=== PATIENT | male | born 1935 | race Caucasian/White ===

== ENCOUNTER 2018-03-26 13:21 | Emergency (ER) | payer MEDICARE ==
[~2018-03-26] VITALS: Ht 180.3 cm; Wt 79.0 kg
[~2018-03-26 13:21] MED LIST: ADULT ASPIRIN L81 MG; ALBUTEROL2.5 MG/3 M INH; ALLOPURINOL100 MG PO; BACTRIM DS1 TAB PO; COLCHICINE PO; COLCHICINE0.6 MG PO; CYCLOBENZAPR5 MG PO; EC-NAPROSYN375 MG PO; ENALAPR/HCTZ1 TA1 PO; ENALAPRIL10 MG PO; FLOMAX0.4 M1 PO; FLUARIX QUADRIV1 IN1 IM; FLUARIX QUADRIV1 INJ IM; FLUZONE SPLT1 M1 IM; INDOMETHACIN25 MG PO; INDOMETHACIN50 MG PO; LORTAB5 PO; MEDDOSEPAK PO; NAPROXEN375 MG PO; PROAIR HFA IN; PROBENECID500 MG PO; RANITIDINE150 M1 PO; SPIRIVA HANDIHALER IN; TRAMADOL HCL50 MG PO; VASERETIC1 TAB OR; VENTOLIN HFA IN; ZEBETA10 MG OR
[2018-03-26] MEDS ORDERED: MOTRIN400 MG PO (15:16)
[2018-03-26] MEDS ORDERED: VOLTAREN1%GEL TOP (15:16)
[2018-03-26] MEDS ORDERED: METOPROL TAR25 MG PO (15:43)
[2018-03-26] MEDS ORDERED: CARDURA1 MG PO (15:44)
[2018-03-26] MEDS ORDERED: NEURONTIN100 MG PO (15:45)
[2018-03-26] MEDS ORDERED: PROSCAR5 MG PO (15:45)
[2018-03-26] MEDS ORDERED: HYDROCHLOROT25 MG PO (15:46)
[2018-03-26] MEDS ORDERED: SPIRIVA IN (15:46)
[2018-03-26] MEDS ORDERED: ALLOPURINOL100 MG PO (15:47)
[2018-03-26] MEDS ORDERED: PREDNISONE20 MG PO (15:48)
[2018-03-26] MEDS ORDERED: TRAZODONE50 MG PO ×2 (15:48→15:50)
[2018-03-26] MEDS ORDERED: CELEXA20 MG PO (15:49)
[2018-03-26] MEDS ORDERED: KLOR-CON M2020 MEQ PO (15:49)
[2018-03-26] MEDS ORDERED: K-PHOS500 MG PO (15:50)
[2018-03-26 17:08] VITALS: BP 119/60
== END 2018-03-26 17:08 | disposition home or self-care (01) ==
LOC: ED 13:21
DX: M80.88XA Other osteoporosis with current pathological fracture, vertebra(e), initial encounter for fracture (principal); F17.210 Nicotine dependence, cigarettes, uncomplicated

== ENCOUNTER 2018-04-27 07:30 | Emergency (ER) | payer MEDICARE ==
[~2018-04-27] VITALS: Ht 180.3 cm; Wt 84.1 kg
[~2018-04-27 07:30] MED LIST changes: +CARDURA1 MG PO; +CELEXA20 MG PO; +HYDROCHLOROT25 MG PO; +K-PHOS500 MG PO; +KLOR-CON M2020 MEQ PO; +METOPROL TAR25 MG PO; +MOTRIN400 MG PO; +NEURONTIN100 MG PO; +PREDNISONE20 MG PO; +PROSCAR5 MG PO; +SPIRIVA IN; +TRAZODONE50 MG PO; +VOLTAREN1%GEL TOP
[2018-04-27] MEDS ORDERED: FLEXERIL PO (09:39)
[2018-04-27] MEDS ORDERED: PERCOCET 10/31 COMBO PO (09:39)
[2018-04-27 09:41] VITALS: BP 127/63
== END 2018-04-27 10:13 | disposition home or self-care (01) ==
LOC: ED 07:30
DX: M48.54XA Collapsed vertebra, not elsewhere classified, thoracic region, initial encounter for fracture (principal); M54.6 Pain in thoracic spine; Y92.129 Unspecified place in nursing home as the place of occurrence of the external cause

== ENCOUNTER 2018-05-11 18:37 | Inpatient (IN) | payer MEDICARE ==
[~2018-05-11] VITALS: Ht 180.3 cm; Wt 70.0 kg
[~2018-05-11 18:37] MED LIST changes: +FLEXERIL PO; +PERCOCET 10/31 COMBO PO
[2018-05-11 19:27] LABS: HEMATOCRIT 42.4 % (39.0-50.0); HEMOGLOBIN 13.6 g/dl (14.0-18.0); IMMATURE GRANULOCYTES 0.9 % (0.0-5.0); MEAN CELL VOLUME 80.8 fL CALC (80.0-100.0); MEAN CORPUSCULAR HGB 25.9 pG CALC (26.0-32.0); MEAN CORPUSCULAR HGB CONC 32.1 g/L CALC (32.0-36.0); NEUT# 19.25 thou/uL (1.82-7.42); RED BLOOD COUNT 5.25 mill/uL (4.70-6.10); RED CELL DISTRI WIDTH 17.3 % (11.5-15.5)
[2018-05-11] MEDS ORDERED: TRAMADOL HYDROC50 MG PO (19:36)
[2018-05-11] MEDS ORDERED: MELATONIN3 M1 PO (19:38)
[2018-05-11 19:40] LABS: ALBUMIN 3.3 g/dL (3.2-5.0); ALKALINE PHOSPHATASE 153 u/l (38-126); ANION GAP 17 (6-22 (CALC)); BILIRUBIN, TOTAL 1.5 mg/dL (0.0-1.4); BUN 40 mg/dL (8-23); BUN/CREATININE RATIO 32 (12-20 (CALC)); CARBON DIOXIDE 28 mmol/l (22-30); CHLORIDE 100 mmol/l (95-108); CREATININE 1.3 mg/dL (0.7-1.3); GFR 53 ML/MIN (>=60 (CALC)); GFR FOR AFR.AMER. > 60 ML/MIN (>=60 (CALC)); POTASSIUM 3.8 mmol/l (3.5-5.1); SGPT/ALT 63 u/l (11-66); SODIUM 141 mmol/l (137-146); TOTAL PROTEIN 6.4 g/dL (6.3-8.2)
[2018-05-11 19:41] LABS: SGOT/AST 110 u/l (19-48)
[2018-05-11 19:52] LABS: MYOGLOBIN 227 ng/mL (0 - 121)
[2018-05-11] MEDS ORDERED: COMBIVENT RESPIMAT IN (20:08)
[2018-05-11] MEDS ORDERED: TRAMADOL HCL50 MG PO (20:08)
[2018-05-11 22:00] LABS: URINE BLOOD DIPSTICK LARGE (NEGATIVE); URINE GLUCOSE - DIPSTICK NEGATIVE (NEGATIVE); URINE KETONE NEGATIVE (NEGATIVE); URINE PROTEIN - DIPSTICK 100 mg/dL (NEG-TRACE); URINE SPECIFIC GRAVITY 1.025
[2018-05-11 22:01] LABS: URINE BILIRUBIN - DIPSTICK NEGATIVE (NEGATIVE); URINE CLARITY SL CLOUDY; URINE COLOR AMBER; URINE LEUK ESTERASE MODERATE (NEGATIVE); URINE NITRITE - DIPSTICK POSITIVE (Negative)
[2018-05-11 22:06] LABS: URINE WBC 50-100 WBC/hpf (0-5)
[2018-05-12 04:54] VITALS: BP 126/69
[2018-05-12 05:01] LABS: HEMATOCRIT 39.1 % (39.0-50.0); HEMOGLOBIN 12.4 g/dl (14.0-18.0); IMMATURE GRANULOCYTES 0.7 % (0.0-5.0); MEAN CELL VOLUME 80.3 fL CALC (80.0-100.0); MEAN CORPUSCULAR HGB 25.5 pG CALC (26.0-32.0); MEAN CORPUSCULAR HGB CONC 31.7 g/L CALC (32.0-36.0); NEUT# 11.77 thou/uL (1.82-7.42); RED BLOOD COUNT 4.87 mill/uL (4.70-6.10); RED CELL DISTRI WIDTH 16.9 % (11.5-15.5)
[2018-05-12 05:25] LABS: ALKALINE PHOSPHATASE 124 u/l (38-126); ANION GAP 15 (6-22 (CALC)); BILIRUBIN, TOTAL 0.7 mg/dL (0.0-1.4); BUN 42 mg/dL (8-23); BUN/CREATININE RATIO 34 (12-20 (CALC)); CALCULATED LDLCHOLESTEROL 35 mg/dL (62-129 (CALC)); CARBON DIOXIDE 25 mmol/l (22-30); CHLORIDE 102 mmol/l (95-108); CREATININE 1.2 mg/dL (0.7-1.3); GFR 58 ML/MIN (>=60 (CALC)); GFR FOR AFR.AMER. > 60 ML/MIN (>=60 (CALC)); HDL CHOLESTEROL 16 mg/dL (>=40); POTASSIUM 3.5 mmol/l (3.5-5.1); SGOT/AST 90 u/l (19-48); SGPT/ALT 54 u/l (11-66); SODIUM 138 mmol/l (137-146); TOTAL TRIGLYCERIDES 70 mg/dl (30-149); VLDL CHOLESTROL 14 mg/dl (0-38 (CALC))
[2018-05-12 05:33] LABS: ALBUMIN 2.4 g/dL (3.2-5.0); CHOLESTEROL HDL RATIO 4.1 (<4.4 (CALC)); TOTAL CHOLESTEROL 65 mg/dl (0-199); TOTAL PROTEIN 4.8 g/dL (6.3-8.2)
[2018-05-12 09:03] VITALS: BP 101/53
[2018-05-12 11:00] VITALS: BP 121/46
[2018-05-12 15:50] VITALS: BP 126/63
[2018-05-12 20:03] VITALS: BP 115/68
[2018-05-13 04:33] VITALS: BP 148/76
[2018-05-13 05:06] LABS: HEMATOCRIT 39.9 % (39.0-50.0); HEMOGLOBIN 12.6 g/dl (14.0-18.0); IMMATURE GRANULOCYTES 0.8 % (0.0-5.0); MEAN CELL VOLUME 81.1 fL CALC (80.0-100.0); MEAN CORPUSCULAR HGB 25.6 pG CALC (26.0-32.0); MEAN CORPUSCULAR HGB CONC 31.6 g/L CALC (32.0-36.0); NEUT# 14.51 thou/uL (1.82-7.42); RED BLOOD COUNT 4.92 mill/uL (4.70-6.10); RED CELL DISTRI WIDTH 16.7 % (11.5-15.5)
[2018-05-13 05:34] LABS: ANION GAP 14 (6-22 (CALC)); BUN 39 mg/dL (8-23); BUN/CREATININE RATIO 42 (12-20 (CALC)); CARBON DIOXIDE 25 mmol/l (22-30); CHLORIDE 105 mmol/l (95-108); CREATININE 0.9 mg/dL (0.7-1.3); GFR > 60 ML/MIN (>=60 (CALC)); GFR FOR AFR.AMER. > 60 ML/MIN (>=60 (CALC)); POTASSIUM 3.7 mmol/l (3.5-5.1); SODIUM 140 mmol/l (137-146)
[2018-05-13 07:49] VITALS: BP 116/66
[2018-05-13 12:00] VITALS: BP 109/53
[2018-05-13 15:45] VITALS: BP 124/62
[2018-05-13 20:31] VITALS: BP 126/66
[2018-05-14 04:52] VITALS: BP 148/88
[2018-05-14 05:36] LABS: HEMATOCRIT 38.5 % (39.0-50.0); IMMATURE GRANULOCYTES 1.7 % (0.0-5.0); MEAN CELL VOLUME 82.4 fL CALC (80.0-100.0); MEAN CORPUSCULAR HGB 25.7 pG CALC (26.0-32.0); MEAN CORPUSCULAR HGB CONC 31.2 g/L CALC (32.0-36.0); NEUT# 10.01 thou/uL (1.82-7.42); RED BLOOD COUNT 4.67 mill/uL (4.70-6.10)
[2018-05-14 05:45] LABS: ANION GAP 10 (6-22 (CALC)); BUN 31 mg/dL (8-23); BUN/CREATININE RATIO 33 (12-20 (CALC)); CARBON DIOXIDE 29 mmol/l (22-30); CHLORIDE 106 mmol/l (95-108); GFR > 60 ML/MIN (>=60 (CALC)); GFR FOR AFR.AMER. > 60 ML/MIN (>=60 (CALC)); POTASSIUM 4.1 mmol/l (3.5-5.1); SODIUM 142 mmol/l (137-146)
[2018-05-14 08:00] VITALS: BP 120/78
[2018-05-14 16:01] VITALS: BP 156/75
[2018-05-14 20:26] VITALS: BP 141/69
[2018-05-15 04:41] VITALS: BP 164/79
[2018-05-15 04:57] LABS: HEMATOCRIT 41.7 % (39.0-50.0); HEMOGLOBIN 12.9 g/dl (14.0-18.0); IMMATURE GRANULOCYTES 2.9 % (0.0-5.0); MEAN CELL VOLUME 82.7 fL CALC (80.0-100.0); MEAN CORPUSCULAR HGB 25.6 pG CALC (26.0-32.0); MEAN CORPUSCULAR HGB CONC 30.9 g/L CALC (32.0-36.0); NEUT# 10.23 thou/uL (1.82-7.42); RED BLOOD COUNT 5.04 mill/uL (4.70-6.10); RED CELL DISTRI WIDTH 16.9 % (11.5-15.5)
[2018-05-15 06:27] LABS: ALBUMIN 2.5 g/dL (3.2-5.0); ALKALINE PHOSPHATASE 163 u/l (38-126); ANION GAP 10 (6-22 (CALC)); BILIRUBIN, TOTAL 0.3 mg/dL (0.0-1.4); BUN 24 mg/dL (8-23); BUN/CREATININE RATIO 32 (12-20 (CALC)); CARBON DIOXIDE 30 mmol/l (22-30); CHLORIDE 107 mmol/l (95-108); CREATININE 0.8 mg/dL (0.7-1.3); GFR > 60 ML/MIN (>=60 (CALC)); GFR FOR AFR.AMER. > 60 ML/MIN (>=60 (CALC)); POTASSIUM 4.2 mmol/l (3.5-5.1); SGOT/AST 125 u/l (19-48); SGPT/ALT 143 u/l (11-66); SODIUM 142 mmol/l (137-146); TOTAL PROTEIN 4.9 g/dL (6.3-8.2)
[2018-05-15 08:26] VITALS: BP 143/90
[2018-05-15 16:00] VITALS: BP 133/80
[2018-05-15 20:00] VITALS: BP 136/73
[2018-05-16 05:24] VITALS: BP 156/78
[2018-05-16 05:56] LABS: HEMATOCRIT 41.5 % (39.0-50.0); HEMOGLOBIN 12.9 g/dl (14.0-18.0); MEAN CELL VOLUME 82.2 fL CALC (80.0-100.0); MEAN CORPUSCULAR HGB 25.5 pG CALC (26.0-32.0); MEAN CORPUSCULAR HGB CONC 31.1 g/L CALC (32.0-36.0); NEUT# 11.08 thou/uL (1.82-7.42); RED BLOOD COUNT 5.05 mill/uL (4.70-6.10); RED CELL DISTRI WIDTH 17.2 % (11.5-15.5)
[2018-05-16 05:57] LABS: ANION GAP 11 (6-22 (CALC)); BUN 24 mg/dL (8-23); BUN/CREATININE RATIO 29 (12-20 (CALC)); CARBON DIOXIDE 30 mmol/l (22-30); CHLORIDE 105 mmol/l (95-108); CREATININE 0.8 mg/dL (0.7-1.3); GFR > 60 ML/MIN (>=60 (CALC)); GFR FOR AFR.AMER. > 60 ML/MIN (>=60 (CALC)); POTASSIUM 4.3 mmol/l (3.5-5.1); SODIUM 142 mmol/l (137-146)
[2018-05-16 07:54] LABS: ALBUMIN 2.4 g/dL (3.2-5.0); ALKALINE PHOSPHATASE 145 u/l (38-126); BILIRUBIN, TOTAL 0.3 mg/dL (0.0-1.4); SGOT/AST 70 u/l (19-48); SGPT/ALT 115 u/l (11-66); TOTAL PROTEIN 4.7 g/dL (6.3-8.2)
[2018-05-16 16:29] VITALS: BP 163/72
[2018-05-16 19:23] VITALS: BP 146/84
[2018-05-17] VITALS: BP 123/72
[2018-05-17 04:00] VITALS: BP 150/80
[2018-05-17 05:36] LABS: ALBUMIN 2.3 g/dL (3.2-5.0); ALKALINE PHOSPHATASE 145 u/l (38-126); ANION GAP 7 (6-22 (CALC)); BILIRUBIN, TOTAL 0.2 mg/dL (0.0-1.4); BUN 25 mg/dL (8-23); BUN/CREATININE RATIO 27 (12-20 (CALC)); CARBON DIOXIDE 31 mmol/l (22-30); CHLORIDE 107 mmol/l (95-108); CREATININE 0.9 mg/dL (0.7-1.3); GFR > 60 ML/MIN (>=60 (CALC)); GFR FOR AFR.AMER. > 60 ML/MIN (>=60 (CALC)); POTASSIUM 3.9 mmol/l (3.5-5.1); SGOT/AST 46 u/l (19-48); SGPT/ALT 92 u/l (11-66); SODIUM 142 mmol/l (137-146); TOTAL PROTEIN 4.5 g/dL (6.3-8.2)
[2018-05-17 09:32] VITALS: BP 102/71
[2018-05-17 16:00] VITALS: BP 145/91
[2018-05-17 19:25] VITALS: BP 124/66
[2018-05-18 04:40] VITALS: BP 122/76
[2018-05-18 08:11] VITALS: BP 111/68
[2018-05-18 16:00] VITALS: BP 128/82
[2018-05-18] MEDS ORDERED: MOTRIN400 MG PO (16:05)
[2018-05-18] MEDS ORDERED: NEURONTIN100 MG PO (16:05)
[2018-05-18] MEDS ORDERED: CARDURA1 MG PO (16:05)
[2018-05-18] MEDS ORDERED: ALLOPURINOL100 MG PO (16:06)
[2018-05-18] MEDS ORDERED: MELATONIN3 M1 PO (16:07)
[2018-05-18 17:26] VITALS: BP 111/68
== END 2018-05-18 17:45 | DRG 194 ==
LOC: ED 18:37 → ED-I 21:00 → ED 21:29 → MS2 21:30
PROVIDERS: Family Medicine; ADMIT Internal Medicine Geriatric Medicine; ATTEND Internal Medicine Geriatric Medicine
DX: J18.9 Pneumonia, unspecified organism (principal); J44.0 Chronic obstructive pulmonary disease with (acute) lower respiratory infection; N39.0 Urinary tract infection, site not specified; M10.072 Idiopathic gout, left ankle and foot; M10.071 Idiopathic gout, right ankle and foot; M10.061 Idiopathic gout, right knee; I12.9 Hypertensive chronic kidney disease with stage 1 through stage 4 chronic kidney disease, or unspecified chronic kidney disease; N18.9 Chronic kidney disease, unspecified; I25.10 Atherosclerotic heart disease of native coronary artery without angina pectoris; M19.90 Unspecified osteoarthritis, unspecified site; F32.9 Major depressive disorder, single episode, unspecified; F41.1 Generalized anxiety disorder; S22.059D Unspecified fracture of T5-T6 vertebra, subsequent encounter for fracture with routine healing; X58.XXXD Exposure to other specified factors, subsequent encounter; B96.5 Pseudomonas (aeruginosa) (mallei) (pseudomallei) as the cause of diseases classified elsewhere; Z87.891 Personal history of nicotine dependence
CPT/HCPCS: G0378

== ENCOUNTER → 2018-11-16 | Outpatient (REF) | payer MEDICARE ==
[~2018-11-16] MED LIST changes: +ALPRAZOLAM0.5 MG PO; +ASPIRIN LOW DOS81 MG PO; +CIPROFLOXACN500 MG PO; +COLACE100 MG PO; +COMBIVENT RESPIMAT IN; +DICLOFENAC75 MG PO; +FOLIC ACID1 MG PO; +GABAPENTIN100 MG PO; +LEVAQUIN750 MG PO; +LOPRESSOR25 MG PO; +Levaquin PO; +MELATONIN3 M1 PO; +METRONIDAZOLE500 MG PO; +PREDNISONE10 MG PO; +PROTONIX40 M2 PO; +SERTRALINE25 MG PO; +STOOL SOFTNR100 M2 PO; +TRAMADOL HYDROC50 MG PO; +ZOLOFT50 MG PO; +ZYLOPRIM300 MG PO
[2018-11-16 10:19] LABS: HEMATOCRIT 45.6 % (39.0-50.0); IMMATURE GRANULOCYTES 0.3 % (0.0-5.0); MEAN CORPUSCULAR HGB CONC 31.8 g/L CALC (32.0-36.0); NEUT# 5.33 thou/uL (1.82-7.42); RED BLOOD COUNT 5.18 mill/uL (4.70-6.10); RED CELL DISTRI WIDTH 17.4 % (11.5-15.5)
[2018-11-16 10:20] LABS: HEMOGLOBIN 14.5 g/dl (14.0-18.0)
[2018-11-16 11:09] LABS: ALBUMIN 3.3 g/dL (3.2-5.0); ALKALINE PHOSPHATASE 83 u/l (38-126); ANION GAP 13 (6-22 (CALC)); BILIRUBIN, TOTAL 0.8 mg/dL (0.0-1.4); BUN 16 mg/dL (8-23); BUN/CREATININE RATIO 14 (12-20 (CALC)); CALCULATED LDLCHOLESTEROL 64 mg/dL (62-129 (CALC)); CARBON DIOXIDE 29 mmol/l (22-30); CHLORIDE 104 mmol/l (95-108); CHOLESTEROL HDL RATIO 2.7 (<4.4 (CALC)); CREATININE 1.1 mg/dL (0.7-1.3); GFR > 60 ML/MIN (>=60 (CALC)); GFR FOR AFR.AMER. > 60 ML/MIN (>=60 (CALC)); HDL CHOLESTEROL 45 mg/dL (>=40); POTASSIUM 4.4 mmol/l (3.5-5.1); SGOT/AST 22 u/l (19-48); SODIUM 141 mmol/l (137-146); TOTAL CHOLESTEROL 122 mg/dl (0-199); TOTAL PROTEIN 5.8 g/dL (6.3-8.2); TRIGLYCERIDES REFLEX TO dLDL 64 mg/dl (30-149); VLDL CHOLESTROL 13 mg/dl (0-38 (CALC))
== END | disposition home or self-care (01) ==
LOC: LAB 09:33
PROVIDERS: ATTEND Internal Medicine Geriatric Medicine
DX: I10 Essential (primary) hypertension (principal); D64.9 Anemia, unspecified

== ENCOUNTER 2018-12-04 08:09 | Inpatient (IN) | payer MEDICARE ==
[~2018-12-04] VITALS: Ht 180.3 cm; Wt 75.5 kg
[~2018-12-04 08:09] MED LIST changes: -ALPRAZOLAM0.5 MG PO; -ASPIRIN LOW DOS81 MG PO; -DICLOFENAC75 MG PO; -GABAPENTIN100 MG PO; -LOPRESSOR25 MG PO; -Levaquin PO; -METRONIDAZOLE500 MG PO; -PROTONIX40 M2 PO; -STOOL SOFTNR100 M2 PO; -ZYLOPRIM300 MG PO
--- NOTE | 2018-12-04 08:09 | NUR ---
PT TO ROOM 13 VIA EMS. DARIEN IN PROCESS. REFUSED IV.
--- NOTE | 2018-12-04 08:30 | NUR ---
PT UNSURE OF HOME MEDS
--- NOTE | 2018-12-04 08:45 | NUR ---
LUNG SOUNDS CLEAR BILATERALLY AFTER BREATHING TREATMENT.
[2018-12-04 08:46] LABS: HEMATOCRIT 43.4 % (39.0-50.0); HEMOGLOBIN 13.4 g/dl (14.0-18.0); IMMATURE GRANULOCYTES 0.4 % (0.0-5.0); MEAN CELL VOLUME 88.9 fL CALC (80.0-100.0); MEAN CORPUSCULAR HGB 27.5 pG CALC (26.0-32.0); MEAN CORPUSCULAR HGB CONC 30.9 g/L CALC (32.0-36.0); NEUT# 5.29 thou/uL (1.82-7.42); RED BLOOD COUNT 4.88 mill/uL (4.70-6.10); RED CELL DISTRI WIDTH 17.9 % (11.5-15.5)
[2018-12-04 08:55] LABS: ANION GAP 10 (6-22 (CALC)); BUN 18 mg/dL (8-23); BUN/CREATININE RATIO 18 (12-20 (CALC)); CARBON DIOXIDE 34 mmol/l (22-30); CHLORIDE 103 mmol/l (95-108); GFR > 60 ML/MIN (>=60 (CALC)); GFR FOR AFR.AMER. > 60 ML/MIN (>=60 (CALC)); POTASSIUM 4.1 mmol/l (3.5-5.1); SODIUM 142 mmol/l (137-146)
--- NOTE | 2018-12-04 09:25 | NUR ---
URINAL PROVIDED PER PATIENT REQUEST.
--- NOTE | 2018-12-04 09:59 | NUR ---
REPORT GIVEN TO JO ZAMORA.
[2018-12-04 11:18] VITALS: BP 150/77
--- NOTE | 2018-12-04 11:18 | NUR ---
PT ARRIVED TO [facility] VIA STRETCHER ACCOMPANIED BY ER NURSE. PT ALERT AND ORIENTED X3, AMBULATED FROM STRETCHER TO SCALE THEN TO BED. PT TOLERATED WELL. ORIENTED PT TO ROOM AND CALL LIGHT, DISCUSSED POC. RESP EVEN AND UNLABORED. PT O2 88%RA PLACED PT ON 02 2L NC HUMIDIFIED INCREASED TO 94%. PT HAS REDNESS TO BUTTOCK AND SMALL AREA TO R HIP; SEE CHART FOR PHOTOS. ASSESSMENT COMPLETED, CALL LIGHT IN REACH,CONTINUE TO MONITOR.
--- NOTE | 2018-12-04 11:24 | NUR ---
PT TAKEN TO ROOM 291 WITHOUT INCIDENT, REPORT WAS TO [place].
--- NOTE | 2018-12-04 14:16 | NUR ---
PT TAKEN DOWN TO RADIOLOGY FOR CXR, CONTINUE TO MONITOR.
--- NOTE | 2018-12-04 14:28 | NUR ---
PT RETURNED FROM RADIOLOGY, IVF CONTINUED.
[2018-12-04 15:37] VITALS: BP 136/61
--- NOTE | 2018-12-04 17:08 | NUR ---
IN TO SEE PT.
[2018-12-04 20:00] VITALS: BP 126/51; BP 134/69
--- NOTE | 2018-12-04 21:01 | NUR ---
Patient alert and oriented with good respiratory pattern at the time of this note. Does not report any pain at the time of this note. Skin not intact. The patient is educated regarding their respiratory pattern. Patient demostred understanding.
[2018-12-04 23:37] VITALS: BP 99/57
--- NOTE | 2018-12-05 | NUR ---
PT ASLEEP AT THIS TIME. NO S/S OF DISTRESS NOTED. CALL MONSON IN REACH. WILL CONTINUE TO MONITOR.
--- NOTE | 2018-12-05 01:20 | NUR ---
Patient alert and oriented with good breathing pattern at the time of this note. Patient Does not report any pain at the time of this note. Sleep.
--- NOTE | 2018-12-05 04:23 | NUR ---
Stable patient at the time of this note no change is observed.
[2018-12-05 04:42] VITALS: BP 129/59
[2018-12-05 05:18] LABS: HEMATOCRIT 40.4 % (39.0-50.0); HEMOGLOBIN 12.6 g/dl (14.0-18.0); IMMATURE GRANULOCYTES 0.4 % (0.0-5.0); MEAN CELL VOLUME 90.4 fL CALC (80.0-100.0); MEAN CORPUSCULAR HGB 28.2 pG CALC (26.0-32.0); MEAN CORPUSCULAR HGB CONC 31.2 g/L CALC (32.0-36.0); NEUT# 6.24 thou/uL (1.82-7.42); RED BLOOD COUNT 4.47 mill/uL (4.70-6.10); RED CELL DISTRI WIDTH 17.5 % (11.5-15.5)
[2018-12-05 05:33] LABS: ALKALINE PHOSPHATASE 77 u/l (38-126); ANION GAP 9 (6-22 (CALC)); BILIRUBIN, TOTAL 0.4 mg/dL (0.0-1.4); BUN 22 mg/dL (8-23); BUN/CREATININE RATIO 19 (12-20 (CALC)); CARBON DIOXIDE 32 mmol/l (22-30); CHLORIDE 103 mmol/l (95-108); CREATININE 1.1 mg/dL (0.7-1.3); GFR > 60 ML/MIN (>=60 (CALC)); GFR FOR AFR.AMER. > 60 ML/MIN (>=60 (CALC)); POTASSIUM 4.5 mmol/l (3.5-5.1); SGOT/AST 21 u/l (19-48); SODIUM 140 mmol/l (137-146); TOTAL PROTEIN 5.4 g/dL (6.3-8.2)
--- NOTE | 2018-12-05 07:15 | NUR ---
REPORT RECEIVED FROM JO BATRES;PT RESTING IN RIGHT SIDE LAYING POSITION;ALERT AND ORIENTED X3;INTRODUCED SELF TO PT AND POC DISCUSSED;RESPIRATIONS APPEAR EVEN AND UNLABORED ON O2 @ 2L VIA NC;PT DENIES ANY CURRENT PAIN OR NEEDS, REQUESTS "MORE SLEEP";ENCOURAGED PT TO CALL FOR ASSISTANCE IF NEEDED;CALL LIGHT IN REACH;WILL CONTINUE TO MONITOR
--- NOTE | 2018-12-05 08:08 | NUR ---
AT BEDSIDE DISCUSSING POC.
--- NOTE | 2018-12-05 09:10 | NUR ---
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
[2018-12-05 09:12] VITALS: BP 134/61
[2018-12-05 11:05] VITALS: BP 142/66
--- NOTE | 2018-12-05 11:35 | NUR ---
PT RESTING IN SEMI FOWLERS POSITION;RESPIRATIONS EVEN AND UNLABORED ON O2 @ 2L VIA NC,NON-PRODUCTIVE COUGH NOTED AT TIMES;PT DENIES ANY CURRENT PAIN OR DISCOMFORTS;TELE MONITORING IN PLACE;IV FLUIDS CONTINUE TO INFUSE WITH EASE TO RIGHT HAND;ENCOURAGED PT TO CALL FOR ASSISTANCE IF NEEDED;CALL LIGHT IN REACH;WILL CONTINUE TO MONITOR
[2018-12-05 15:04] VITALS: BP 93/54
--- NOTE | 2018-12-05 16:30 | NUR ---
PT TRANSFERRED VIA WHEELCHAIR TO [facility] IN STABLE CONDITION ACCOMPANIED BY DG GALLEGO
--- NOTE | 2018-12-05 17:00 | NUR ---
PT RETURNED BACK TO FLOOR IN STABLE CONDITION ACCOMPANIED BY DG GALLEGO;RESPIRATIONS EVEN AND UNLABORED ON O2 @ 2L VIA NC;TELE MONITORING IN PLACE;IV SITE TO RIGHT HAND REMAINS PATENT;PT DENIES ANY ADDITIONAL NEEDS AND IS RE-POSITIONED IN BED;ENCOURAGED TO CALL FOR ASSISTANCE IF NEEDED;CALL LIGHT IN REACH;WILL CONTINUE TO MONITOR
--- NOTE | 2018-12-05 19:00 | NUR ---
RECEIVED REPORT FROM DAY SHIFT NURSE. NO COMPLAINTS FROM PT AT THIS TIME. PT STATES HE IS DEPRESSSED. PT AND SOFT METALS HAND ENGRAVER DISSCUSSED PTS DEPRESSION. NO OTHER NEEDS A THIS TIME. CALL MONSON IN REACH. WILL CONTINUE TO MONITOR.
[2018-12-05 19:45] VITALS: BP 132/68
--- NOTE | 2018-12-05 21:05 | NUR ---
PT RESTING IN BED WATCHING. ASSESMENT COMPLETED AT THIS TIME. PT C/O NAUSEA MEDICATED PER ORDER. PT SAYS HE HAS NUMBNESS TO FEET. SMALL SCABBED AREA TO BUTTOCKS AND R HIP NOTED. NO NEEDS AT THIS TIME. RIAZ MONSON IN REACH. WILL CONTINUE TO MONITOR.
[2018-12-06 01:20] VITALS: BP 127/65
--- NOTE | 2018-12-06 04:00 | NUR ---
PT APPEARS ASLEEP AT THIS TIME. NO S/S OF DISTRESS NOTED. CALL MONSON IN REACH. WILL CONTINUE TO MONITOR.
[2018-12-06 05:34] VITALS: BP 130/66
[2018-12-06 05:55] LABS: HEMATOCRIT 40.1 % (39.0-50.0); IMMATURE GRANULOCYTES 0.6 % (0.0-5.0); MEAN CELL VOLUME 91.6 fL CALC (80.0-100.0); MEAN CORPUSCULAR HGB 27.4 pG CALC (26.0-32.0); MEAN CORPUSCULAR HGB CONC 29.9 g/L CALC (32.0-36.0); NEUT# 11.82 thou/uL (1.82-7.42); RED BLOOD COUNT 4.38 mill/uL (4.70-6.10); RED CELL DISTRI WIDTH 17.6 % (11.5-15.5)
[2018-12-06 06:02] LABS: ALBUMIN 2.8 g/dL (3.2-5.0); ALKALINE PHOSPHATASE 65 u/l (38-126); ANION GAP 11 (6-22 (CALC)); BILIRUBIN, TOTAL 0.3 mg/dL (0.0-1.4); BUN 22 mg/dL (8-23); BUN/CREATININE RATIO 23 (12-20 (CALC)); CARBON DIOXIDE 31 mmol/l (22-30); CHLORIDE 105 mmol/l (95-108); GFR > 60 ML/MIN (>=60 (CALC)); GFR FOR AFR.AMER. > 60 ML/MIN (>=60 (CALC)); POTASSIUM 4.6 mmol/l (3.5-5.1); SGOT/AST 23 u/l (19-48); SODIUM 142 mmol/l (137-146); TOTAL PROTEIN 5.2 g/dL (6.3-8.2)
--- NOTE | 2018-12-06 06:55 | NUR ---
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
[2018-12-06 08:11] VITALS: BP 156/66
--- NOTE | 2018-12-06 08:20 | NUR ---
PT RESTING AT BEDSIDE EATING BREAKAST,A&O X3;VS OBTAINED AND ASSESSMENT COMPLETED;PT REPORTS HEADACHE PAIN HAS DECREASED SINCE TYELNOL ADMINISTRATION ON MANAGER SAS;RESPIRATIONS SHALLOW ON O2 @ 2L VIA NC, NON-PRODUCTIVE COUGH NOTED;PT MEDICATED WITH ROBITUSSIN AC 5ML PER REQUEST;ABDOMEN DISTENDED/SOFT ON PALPATION AND ACTIVE IN ALL 4 QUADRANTS;WEAK PEDAL PULSES;SKIN INTACT;#22G TO RIGHT HAND INFUSING D5 1/2 NS @ 75ML/HR,SITE APPEARS HEALTHY;TELE MONITORING IN PLACE;PT DENIES ANY ADDITIONAL NEEDS AT THIS TIME AND IS ENCOURAGED TO CALL FOR ASSISTANCE IF NEEDED;FALL PRECAUTIONS IN PLACE WITH CALL LIGHT IN REACH;WILL CONTINUE TO MONITOR
--- NOTE | 2018-12-06 08:41 | NUR ---
AT BEDSIDE DISCUSSING POC.
[2018-12-06 11:05] VITALS: BP 102/53
--- NOTE | 2018-12-06 11:40 | NUR ---
PT AMBULATED WITH PHYSICAL THERAPY DOWN THE HALLWAYS WITH A STEADY GAIT;PRIOR TO AMBULATION PT O2 SATS @ 94% ON RA;QUICKLY AFTER AMBULATION WITHOUT O2 PT DROPPED TO 85%;OXYGEN RE-APPLIED @ 2L AND SATS INCREASED TO 94%.
--- NOTE | 2018-12-06 12:15 | NUR ---
PT RESTING AT BEDSIDE;RESPIRATIONS EVEN AND UNLABORED ON O2 @ 2L VIA NC;PT DENIES ANY CURRENT PAIN OR NEEDS;TELE MONITORING IN PLACE;IV FLUIDS INFUSING WITH EASE TO RIGHT HAND;SAFETY PRECAUTIONS REINFORCED;CALL LIGHT IN REACH;WILL CONTINUE TO MONITOR
[2018-12-06 15:40] VITALS: BP 122/53
--- NOTE | 2018-12-06 16:30 | NUR ---
PT RESTING AT BEDSIDE USING HIS I.S.;RESPIRATIONS REMAIN SHALLOW ON O2 @ 2L VIA NC;PT DENIES ANY CURRENT PAIN OR NEEDS;#22G TO RIGHT HAND INFUSING D5 1/2 NS WITH EASE PER ORDER;TELE MONITORING IN PLACE;ENCOURAGED TO CALL FOR ASSISTANCE IF NEEDED;CALL LIGHT IN REACH;WILL CONTINUE TO MONITOR
[2018-12-06 19:00] VITALS: BP 146/77
--- NOTE | 2018-12-06 21:17 | NUR ---
PT MEDICATED ORDERS PROVIDE, PT C/O HEADACHE 02/03/MEDICATED. DENIES SOB, NO S/O DISTRESS. PT ASKED FOR SOMETHING FOR SLEEP/PROVIDED. POC DISCUSSED.
[2018-12-07 00:28] VITALS: BP 126/69
--- NOTE | 2018-12-07 01:55 | NUR ---
PT SLEEPING AT THIS TIME. NO S/O DISTRESS NOTED. CALL LIGHT AT BEDSIDE.
--- NOTE | 2018-12-07 03:45 | NUR ---
PT SITTING UP ON SIDE OF THE BED, REPORTS BEING UNABLE TO SLEEP. OFFERED ASSISTANCE OR COMFORT MEASURES/DENIED ANY NEED. PT USING URINAL AT BEDSIDE. WILL FOLLOW-UP AND CONTINUE TO MONITOR PT FOR NEEDS.
[2018-12-07 05:40] VITALS: BP 132/59
[2018-12-07 06:37] LABS: HEMATOCRIT 43.3 % (39.0-50.0); HEMOGLOBIN 12.9 g/dl (14.0-18.0); IMMATURE GRANULOCYTES 2.7 % (0.0-5.0); MEAN CELL VOLUME 91.4 fL CALC (80.0-100.0); MEAN CORPUSCULAR HGB 27.2 pG CALC (26.0-32.0); MEAN CORPUSCULAR HGB CONC 29.8 g/L CALC (32.0-36.0); NEUT# 10.1 thou/uL (1.82-7.42); RED BLOOD COUNT 4.74 mill/uL (4.70-6.10); RED CELL DISTRI WIDTH 17.7 % (11.5-15.5)
[2018-12-07 06:49] LABS: ANION GAP 9 (6-22 (CALC)); BUN 20 mg/dL (8-23); BUN/CREATININE RATIO 21 (12-20 (CALC)); CARBON DIOXIDE 33 mmol/l (22-30); CHLORIDE 104 mmol/l (95-108); CREATININE 0.9 mg/dL (0.7-1.3); GFR > 60 ML/MIN (>=60 (CALC)); GFR FOR AFR.AMER. > 60 ML/MIN (>=60 (CALC)); POTASSIUM 4.5 mmol/l (3.5-5.1); SODIUM 141 mmol/l (137-146)
--- NOTE | 2018-12-07 07:25 | NUR ---
REPORT RECEIVED FROM HILTONRN;PT RESTING AT BEDSIDE;INTRODUCED SELF TO PT AND POC DISCUSSED;RESPIRATIONS EVEN AND UNLABORED ON O2 @ 2L VIA NC;PT DENIES ANY CURRENT PAIN OR NEEDS;IV SITE INFUSING D5 1/2 NS @ 75ML/HR WITH EASE;TELE MONITORING IN PLACE;PT ENCOURAGED TO CALL FOR ASSISTANCE IF NEEDED;CALL LIGHT IN REACH;WILL CONTINUE TO MONITOR
--- NOTE | 2018-12-07 08:35 | NUR ---
PT TRANSFERRED TO [facility] VIA WHEELCHAIR IN STABLE CONDITION ACCOMPANIED BY VOLUNTEER.
--- NOTE | 2018-12-07 09:20 | NUR ---
PT RESTING IN SEMI FOWLERS POSITION,A&O X3;PT REPORTS FEELING "CRAPPY", BUT DENIES ANY PAIN.PAIN SCALE AND REPORTING EDUCATED;VS OBTAINED AND ASSESSMENT COMPLETED;RESPIRATIONS EVEN AND UNLABORED,SHALLOW ON O2 @ 2L VIA NC;COARSE/WHEEZY LUNG SOUNDS NOTED;ABDOMEN DISTENDED/SOFT ON PALPATION AND ACTIVE IN ALL 4 QUADRANTS;WEAK PEDAL PULSES;SKIN INTACT;TELE MONITORING IN PLACE;#22G TO RIGHT HAND INFUSING D5 1/2 NS @ 75 ML/HR PER ORDER,SITE APPEARS HEALTHY;PT DENIES ANY ADDITIONAL NEEDS AT THIS TIME STATING "I NEED A NAP";ENCOURAGED TO CALL FOR ASSISTANCE IF NEEDED;CALL LIGHT IN REACH;WILL CONTINUE TO MONITOR
[2018-12-07 09:23] VITALS: BP 168/90
--- NOTE | 2018-12-07 11:35 | NUR ---
PT RESTING AT BEDSIDE WATCHING TV;RESPIRATIONS EVEN AND UNLABORED ON O2 @ 2L VIA NC;PT DENIES ANY CURRENT PAIN OR NEEDS;IV FLUIDS CONTINUE TO INFUSE TO RIGHT HAND WITH EASE;TELE MONITORING IN PLACE;CALL LIGHT IN REACH;WILL CONTINUE TO MONITOR
[2018-12-07 12:00] VITALS: BP 137/71
[2018-12-07 16:00] VITALS: BP 177/87
--- NOTE | 2018-12-07 16:00 | NUR ---
PT RESTING IN SEMI FOWLERS POSITION WITH VISITORS AT BEDSIDE;RESPIRATIONS EVEN AND UNLABORED ON O2 @ 2L VIA NC;PT DENIES ANY CURRENT PAIN OR NEEDS;IV FLUIDS CONTINUE TO INFUSE WITH EASE;TELE MONITORING IN PLACE;PT ENCOURAGED TO CALL FOR ASSISTANCE IF NEEDED;CALL LIGHT IN REACH;WILL CONTINUE TO MONITOR
--- NOTE | 2018-12-07 16:20 | NUR ---
Patient seen this PM for gait training, gait belt applied prior to. Sit to stand to RW done with SBS. Patient ambulated 2 x [address] with RW and portable O2 at 2L and with light CGA x1. O2 sats monitored and remained above 90% before, during and after treatment. Assistance of second staff member required for assistance with IV and portable O2. Pt. ambulated with stooped posture and required verbal cues to push RW vs lifting to complete turns. Patient returned to sitting in bed with O2 at 2L and call light within reach. Patient left resting comfortably and without questions or concerns.
[2018-12-07 19:13] VITALS: BP 141/66
--- NOTE | 2018-12-07 20:50 | NUR ---
PT ASSISTED TO RESTROOM AND BACK TO BED, PT ASSESSED, LUNG SOUNDS ARE CLEAR/DIM BLL, ABD HYPO-ACTIVE BOWEL SOUNDS NON-TENDER, SKIN INTACT, NO NOTED EDEMA, LOCX4, NEURO'S INTACT. POC DISCUSSED W/PT, PT IS WEARING 02 AT THIS TIME W/EXTENSION TUBING INPLACE FOR AMBULATION. PT LEFT IN LOW FOWLERS POSITION WATCHING TV.
[2018-12-08 05:03] VITALS: BP 157/74
--- NOTE | 2018-12-08 05:48 | NUR ---
PT ASSISTED TO RESTROOM AND BACK TO BED. TOLERATED WELL, NO SOB.
--- NOTE | 2018-12-08 07:15 | NUR ---
REPORT RECEIVED FROM JO CANELA;PT RESTING IN SEMI FOWLERS POSITION WITH LAB AT BEDSIDE;INTRODUCED SELF TO PT AND POC DISCUSSED;RESPIRATIONS EVEN AND UNLABORED ON O2 @ 2L VIA NC, EXERTIONAL SOB NOTED AT TIMES;PT DENIES ANY CURRENT PAIN OR NEEDS;TELE MONITORING IN PLACE;PT ENCOURAGED TO CALL FOR ASSISTANCE IF NEEDED;FALL PRECAUTIONS IN PLACE WITH CALL LIGHT IN REACH;WILL CONTINUE TO MONITOR
[2018-12-08 08:10] LABS: HEMOGLOBIN 12.7 g/dl (14.0-18.0); IMMATURE GRANULOCYTES 0.7 % (0.0-5.0); MEAN CELL VOLUME 91.3 fL CALC (80.0-100.0); MEAN CORPUSCULAR HGB 27.6 pG CALC (26.0-32.0); MEAN CORPUSCULAR HGB CONC 30.2 g/L CALC (32.0-36.0); NEUT# 7.24 thou/uL (1.82-7.42); RED BLOOD COUNT 4.6 mill/uL (4.70-6.10); RED CELL DISTRI WIDTH 17.3 % (11.5-15.5)
[2018-12-08 08:16] LABS: ANION GAP 8 (6-22 (CALC)); BUN 20 mg/dL (8-23); BUN/CREATININE RATIO 22 (12-20 (CALC)); CARBON DIOXIDE 36 mmol/l (22-30); CHLORIDE 101 mmol/l (95-108); CREATININE 0.9 mg/dL (0.7-1.3); GFR > 60 ML/MIN (>=60 (CALC)); GFR FOR AFR.AMER. > 60 ML/MIN (>=60 (CALC)); POTASSIUM 4.3 mmol/l (3.5-5.1); SODIUM 141 mmol/l (137-146)
--- NOTE | 2018-12-08 08:40 | NUR ---
AT BEDSIDE DISCUSSING POC WITH PT.
--- NOTE | 2018-12-08 08:50 | NUR ---
Attempted physical therapy treatment this morning, however patient refused stating he was too tired as he had just been up to bathroom and was just now getting back in bed.
[2018-12-08 09:27] VITALS: BP 183/79
--- NOTE | 2018-12-08 09:30 | NUR ---
PT RESTING AT BEDSIDE WITH VISITOR;VS OBTAINED AND ASSESSMENT COMPLETED;PT DENIES ANY CURRENT PAIN,PAIN SCALE AND REPORTING EDUCATED;PT REQUEST PO XANAX AND IS ADMINISTERED XANAX 0.5MG PO AT THIS TIME;RESPIRATIONS SHALLOW ON O2 @ 2L VIA NC,CRACKLES/DIMINISHED LUNG SOUNDS NOTED;EXERTIONAL SOB NOTED AT TIMES;I.S. AT BEDSIDE AND PT DEMONSTRATED USE,ENCOURAGED 10X PER HOUR;ABDOMEN DISTENDED/SOFT ON PALPATION AND ACTIVE IN ALL 4 QUADRANTS;#22G TO RIGHT HAND INFUSING NS @ 75ML/HR,SITE APPEARS HEALTHY;TELE MONITORING IN PLACE;PT DENIES ANY ADDITIONAL NEEDS AT THIS TIME AND IS ENCOURAGED TO CALL FOR ASSISTANCE IF NEEDED;CALL LIGHT IN REACH;WILL CONTINUE TO MONITOR
[2018-12-08 11:18] VITALS: BP 130/58
--- NOTE | 2018-12-08 12:10 | NUR ---
PT RESTING AT BEDSIDE EATING LUNCH;RESPIRATIONS SHALLOW ON O2 @ 2L VIA NC;PT DENIES ANY CURRENT PAIN JUST REPORTS "WEAKNESS" AND "FREQUENT BOWEL MOVEMENTS";IV SITE INFUSING WELL TO RIGHT HAND;TELE MONITORING IN PLACE;PT ASSISTED TO THE BATHROOM AT THIS TIME;ENCOURAGED TO CALL FOR ASSISTANCE IF NEEDED;CALL LIGHT IN REACH;WILL CONTINUE TO MONITOR
--- NOTE | 2018-12-08 15:07 | NUR ---
PT WORKING WITH PHYSICAL THERAPY.
--- NOTE | 2018-12-08 15:15 | NUR ---
THERPAY WAS FOCUSED ON GAIT TRAINING. PATIENT WAS ON 2 LITERS O2. PATIENT WAS SITTING IN CHAIR ENTERED THE ROOM. PORTABLE O2 TANK WAS CONNECTED TO PATIENT. SIT TO STAND (CGA) VC FOR PATIENT TO NOT STAND WITHOUT THERAPIST BY HIS SIDE. 96 PERCENT O2 WHEN INITATED GAIT TRAINING. PATIENT USED FWW AMBULATED 50 FT. X 2 (CGA) LEFT KNEE BUCKLED TWICE AMBULATED FIRST 50 FEET. SECOND 50 FEET PATIENTS KNEE DID NOT BUCKLE. VC FOR ERECT POSTURE, PULL WALKER CLOSER TO BODY. STAND TO SIT (CGA) VC FOR CORRECT HAND PLACENT TO A SEATED POSITION, NOT TO JUST DROP TO CHAIR. O2 LEVEL WAS AT 89 PERCENT IN SEATED POSITION. EDUCATED PT. ON BREATHING TECHNIQUES TO INCREASE O2. PATIENT O2 INCREASED TO 97 PERCENT, TRAY TABLE AND CALL LIGHT POSITIONED BY PATIENT SIDE EXITED ROOM.
[2018-12-08 15:30] VITALS: BP 151/69
--- NOTE | 2018-12-08 16:30 | NUR ---
PT APPEARS TO BE SLEEPING IN SEMI FOWLERS POSITION;NO S/S OF DISTRESS NOTED;RESPIRATIONS EVEN AND UNLABORED ON O2 @ 2L VIA NC;IV FLUIDS INFUSING WELL;TELE MONITORING IN PLACE;CALL LIGHT IN REACH;WILL CONTINUE TO MONITOR
[2018-12-08 19:35] VITALS: BP 133/68
--- NOTE | 2018-12-08 19:35 | NUR ---
PT RESTING IN BED, NO SIGNS OF DISTRESS NOTED, RESP EVEN AND UNLABORED. PT ALERT AND ORIENTED X3, DISCUSSED POC, PT IN AGREEMENT. 02 2L NC, PT STATES HE WOULD LIKE A SLEEPING PILL TONIGHT WITH HIS XANAX. ASSESSMENT COMPLETED. CALL LIGHT IN REACH,CONTINUE TO MONITOR.
--- NOTE | 2018-12-08 21:10 | NUR ---
PT MEDICATED PER MAR.
[2018-12-09 00:04] VITALS: BP 123/63
--- NOTE | 2018-12-09 00:32 | NUR ---
PT RESTING IN BED WITH EYES CLOSED, NO SIGNS OF DISTRESS NOTED, RESP EVEN AND UNLABORED. CALL LIGHT IN REACH,CONTINUE TO MONITOR.
--- NOTE | 2018-12-09 04:00 | NUR ---
PT RESTING IN BED, WITH EYES CLOSED, NO SIGNS OF DISTRESS NOTED, RESP EVEN AND UNLABORED. CALL LIGHT IN REACH,CONTINUE TO MONITOR.
[2018-12-09 04:11] VITALS: BP 136/61
[2018-12-09 07:08] LABS: HEMATOCRIT 42.1 % (39.0-50.0); HEMOGLOBIN 12.6 g/dl (14.0-18.0); IMMATURE GRANULOCYTES 0.8 % (0.0-5.0); MEAN CELL VOLUME 91.3 fL CALC (80.0-100.0); MEAN CORPUSCULAR HGB 27.3 pG CALC (26.0-32.0); MEAN CORPUSCULAR HGB CONC 29.9 g/L CALC (32.0-36.0); NEUT# 6.28 thou/uL (1.82-7.42); RED BLOOD COUNT 4.61 mill/uL (4.70-6.10); RED CELL DISTRI WIDTH 17.3 % (11.5-15.5)
[2018-12-09 07:33] LABS: ANION GAP 6 (6-22 (CALC)); BUN 17 mg/dL (8-23); BUN/CREATININE RATIO 19 (12-20 (CALC)); CARBON DIOXIDE 37 mmol/l (22-30); CHLORIDE 101 mmol/l (95-108); CREATININE 0.9 mg/dL (0.7-1.3); GFR > 60 ML/MIN (>=60 (CALC)); GFR FOR AFR.AMER. > 60 ML/MIN (>=60 (CALC)); POTASSIUM 4.2 mmol/l (3.5-5.1); SODIUM 140 mmol/l (137-146)
[2018-12-09 07:52] VITALS: BP 113/59
--- NOTE | 2018-12-09 08:20 | NUR ---
PT IS SITTING IN THE SIDE OF THE BED. DR. RAINES AT BEDSIDE TO ASESS PT AND DICUSS POC WITH PT. ASESSMENT DONE. PT IS A&O X3. TELE IN PLACE. PT DENIES PAIN AT THIS TIME. O2 AT 2L VIA NC. SAFETY PRECAUTIONS REINFORCED AND CALL LIGHT IN REACH.
[2018-12-09 11:05] VITALS: BP 138/62
--- NOTE | 2018-12-09 11:43 | NUR ---
PT IS SITTING IN THE SIDE OF THE BED. EATING HIS LUNCH. WITH NO S/S OF DISTRESS NOTED. CALL LIGHT IN REACH.
[2018-12-09 15:16] VITALS: BP 121/64
--- NOTE | 2018-12-09 16:14 | NUR ---
PT IS RESTING ON HIS RIGHT SIDE WITH NO S/S OF DISTRESS NOTED. CALL LIGHT IN REACH.
--- NOTE | 2018-12-09 19:05 | NUR ---
REPORT RECEIVED FROM JO LAY. PT RESTING IN BED. PT DENIES ANY PAIN OR DISCOMFORT AT THIS TIME. RESPIRATIONS EVEN AND UNLABORED. PT ENCOURAGED TO USE CALL MONSON IF NEEDS SHOULD ARISE. WILL CONTINUE TO MONITOR.
[2018-12-09 19:14] VITALS: BP 149/66
--- NOTE | 2018-12-09 22:30 | NUR ---
PT RESING IN BED. ALERT AND ORIENTED. RESPIRATIONS EVEN AND UNLABORED. PT DENIES ANY PAIN OR DISCOMFORT AT THIS TIME. PT PROVIDED WITH COFFEE PER REQUEST. SAFETY PRECAUTIONS IN PLACE. WILL CONTINUE TO MONITOR.
[2018-12-10 00:40] VITALS: BP 134/64
--- NOTE | 2018-12-10 01:00 | NUR ---
PT RESTING IN BED WITH EYES CLOSED. RESPIRATIONS EVEN AND UNLABORED ON O2 VIA NC @ 2L. SAFETY PRECAUTIONS IN PLACE. WILL CONTINUE TO MONITOR.
[2018-12-10 03:52] VITALS: BP 133/69
--- NOTE | 2018-12-10 04:17 | NUR ---
PT RESTING IN BED WITH EYES CLOSED. NO SIGNS OR SYMPTOMS OF DISTRESS. SAFETY PRECAUTIONS IN PLACE. WILL CONTINUE TO MONITOR.
[2018-12-10 05:55] LABS: HEMATOCRIT 40.7 % (39.0-50.0); HEMOGLOBIN 12.4 g/dl (14.0-18.0); IMMATURE GRANULOCYTES 0.6 % (0.0-5.0); MEAN CELL VOLUME 90.6 fL CALC (80.0-100.0); MEAN CORPUSCULAR HGB 27.6 pG CALC (26.0-32.0); MEAN CORPUSCULAR HGB CONC 30.5 g/L CALC (32.0-36.0); NEUT# 6.84 thou/uL (1.82-7.42); RED BLOOD COUNT 4.49 mill/uL (4.70-6.10); RED CELL DISTRI WIDTH 17.3 % (11.5-15.5)
[2018-12-10 06:18] LABS: ANION GAP 7 (6-22 (CALC)); BUN 18 mg/dL (8-23); BUN/CREATININE RATIO 20 (12-20 (CALC)); CARBON DIOXIDE 36 mmol/l (22-30); CHLORIDE 101 mmol/l (95-108); CREATININE 0.9 mg/dL (0.7-1.3); GFR > 60 ML/MIN (>=60 (CALC)); GFR FOR AFR.AMER. > 60 ML/MIN (>=60 (CALC)); POTASSIUM 4.5 mmol/l (3.5-5.1); SODIUM 140 mmol/l (137-146)
[2018-12-10 07:44] VITALS: BP 151/76
--- NOTE | 2018-12-10 08:00 | NUR ---
ASSESSMENT DONE. PT IS SITTING IN THE SIDE OF THE BED. TELE IN PLACE. IVF INFUSING WELL. PT DENIES PAIN AT THIS TIME. PT IS A&O X3. PT DENIES ANY NEEDS AT THIS TIME. O2 AT 2L VIA NC. CALL LIGHT IN REACH.
[2018-12-10 11:35] VITALS: BP 147/69
[2018-12-10 11:41] LABS: C. DIFFICILE TOXIN A&B NEGATIVE (NEGATIVE)
--- NOTE | 2018-12-10 12:01 | NUR ---
PT IS SITTING IN THE SIDE OF THE BED EATING HIS LUNCH. PT DENIES ANY NEEDS AT THIS TIME. CALL LIGHT IN REACH.
[2018-12-10 16:33] VITALS: BP 129/59
--- NOTE | 2018-12-10 16:40 | NUR ---
PT AMBULATING IN THE HALLWAY WITH A WALKER AND NECK BAND SETTER AT SIDE. O2 AT 2L VIA NC. PT AMBULATING WITH SLOW STEADY GAIT.
--- NOTE | 2018-12-10 19:00 | NUR ---
REPORT RECEIVED FROM JO LAY. PT RESTING IN BED WITH EYES CLOSED. NO SIGNS OR SYMPTOMS OF DISTRESS. SAFETY PRECAUTIONS IN PLACE. WILL CONTINUE TO MONITOR.
[2018-12-10 19:45] VITALS: BP 122/76
--- NOTE | 2018-12-10 20:40 | NUR ---
PT SITTING AT THE SIDE OF THE BED. ALERT AND ORIENTED. PT DENIES ANY PAIN OR DISCOMFORT. PT ASSISTED TO THE RESTROOM AND INSTRUCTED TO CALL FOR ASSISTANCE WHEN FINISHED. SAFETY PRECAUTIONS IN PLACE.
--- NOTE | 2018-12-10 23:16 | NUR ---
PATIENT REFUSED CPT. HE SAID NOT TONIGHT. WILL DO IT TOMORROW.
[2018-12-11] VITALS (9 sets, daily range): BP systolic 115–179; BP diastolic 52–92
--- NOTE | 2018-12-11 01:42 | NUR ---
PT RESTING IN BED WITH EYES CLOSED. NO SIGNS OR SYMPTOMS OF DISTRESS. SAFETY PRECAUTIONS IN PLACE. WILL CONTINUE TO MONITOR.
--- NOTE | 2018-12-11 04:00 | NUR ---
SKIN TEAR NOTED ON PT RIGHT FORARM UNDER IV TUBING TAPED TO THE SKIN. TAPE REMOVED. PICTURES OBTAINED AND PLACED IN CHART. DRESSING APPLIED. SAFETY PRECAUTIONS IN PLACE. WILL CONTINUE TO MONITOR.
[2018-12-11 05:51] LABS: HEMATOCRIT 40.8 % (39.0-50.0); HEMOGLOBIN 12.5 g/dl (14.0-18.0); IMMATURE GRANULOCYTES 0.9 % (0.0-5.0); MEAN CELL VOLUME 90.7 fL CALC (80.0-100.0); MEAN CORPUSCULAR HGB 27.8 pG CALC (26.0-32.0); MEAN CORPUSCULAR HGB CONC 30.6 g/L CALC (32.0-36.0); NEUT# 7.34 thou/uL (1.82-7.42); RED BLOOD COUNT 4.5 mill/uL (4.70-6.10); RED CELL DISTRI WIDTH 17.3 % (11.5-15.5)
--- NOTE | 2018-12-11 05:55 | NUR ---
CPT DONE AFTER TX.
[2018-12-11 05:57] LABS: ANION GAP 7 (6-22 (CALC)); BUN 18 mg/dL (8-23); BUN/CREATININE RATIO 21 (12-20 (CALC)); CARBON DIOXIDE 36 mmol/l (22-30); CHLORIDE 102 mmol/l (95-108); CREATININE 0.9 mg/dL (0.7-1.3); GFR > 60 ML/MIN (>=60 (CALC)); GFR FOR AFR.AMER. > 60 ML/MIN (>=60 (CALC)); POTASSIUM 4.2 mmol/l (3.5-5.1); SODIUM 141 mmol/l (137-146)
--- NOTE | 2018-12-11 07:00 | NUR ---
REPORT RECEIVED FROM SMITHA. PT IS RESTING ON HIS RIGHT SIDE WITH NO S/S OF DISTRESS NOTED. PT DENIES ANY NEEDS AT THIS TIME. CALL LIGHT IN REACH.
--- NOTE | 2018-12-11 08:02 | NUR ---
PT IS SITTING IN THE SIDE OF THE BED. ASSESSMENT DONE. PT IS A&O X3. PT DENIES PAIN AT THIS TIME. TELE IN PLACE. IVF INFUSING WELL. CALL LIGHT IN REACH.
--- NOTE | 2018-12-11 12:00 | NUR ---
PT IS SITTING IN THE SIDE OF THE BED EATING HIS LUNCH. PT DENIES ANY NEEDS AT THIS TIME. CALL LIGHT IN REACH.
--- NOTE | 2018-12-11 15:56 | NUR ---
PT IS RESTING IN BED WITH NO S/S OF DISTERSS NOTED. PT DENIES ANY NEEDS AT THIS TIME. CALL LIGHT IN REACH.
--- NOTE | 2018-12-11 19:15 | NUR ---
PT IS SITTING ON SIDE OF BED, REPORTS FEELING SOMEWHAT BETTER TODAY, BUT REPORTS FEELING NOT QUITE READY TO GO HOME. DENIES ANY NEEDS AT THIS TIME., CALL LIGHT IS ON BEDSIDE TABLE.
--- NOTE | 2018-12-11 19:55 | NUR ---
PT ASSISTED FROM RESTROOM TO SITTING ON SIDE OF BED. PT ASSESSED, LUNG SOUNDS ARE DIM/CLEAR AT THIS TIME. DENIES PRODUCTIVE COUGH, BUT SPUTUM CUP IS AT BEDSIDE AND DISCUSSED POSSIBLE SAMPLE BEING PROVIDED IF ABLE. PT DENIES ANY PAIN OR DISCOMFORT AT THIS TIME. PT EXPRESSED BEING DEPRESSED AND MEDICATIONS DISCUSSED. HE STATES THAT HE HAS BEEN DEPRESSED AND JUST FEELS LIKE ITS HARD TO KEEP HIS SPIRITS UP. I TALKED W/PT TO SOME EXTENT REGARDING THIS AND HIS TREATMENT PLAN. COFFEE PROVIDED, DENIES ANY OTHER COMFORT NEEDS. I ALSO DISCUSSED RESPIRATORY TREATMENTS W/PT AND HE STATED THAT HE DOES WANT PERCUSSIONS, BUT REFUSES TO HAVE ABG'S DRAWN AGAIN. WILL NOTIFY RESPIRATORY. DRESSING TO RIGHT FOREARM CDI AND IV FLUIDS RUNNING TO IV SITE TO RIGHT HAND/SITE APPEARS HEALTHY.
--- NOTE | 2018-12-11 22:32 | NUR ---
cpt done as ordered.
--- NOTE | 2018-12-12 01:00 | NUR ---
PT SLEEPING IN BED, LIGHTS AND TV OUT. NO S/O DISTRESS NOTED AT THIS TIME. CALL LIGHT IS AT BEDSIDE.
[2018-12-12 04:52] VITALS: BP 144/77
--- NOTE | 2018-12-12 05:41 | NUR ---
CPT DONE ORDERED AFTER TX.
--- NOTE | 2018-12-12 07:20 | NUR ---
REPORT RECEIVED FROM JO CANELA;PT APPEARS TO BE SLEEPING IN SEMI FOWLERS POSITION;RESPIRATIONS APPEAR EVEN AND UNLABORED ON O2 @ 2L VIA NC;NO S/S OF DISTRESS NOTED;TELE MONITORING IN PLACE;IV FLUIDS INFUSING WELL @ 75ML/HR PER ORDER;ALL SAFETY PRECAUTIONS IN PLACE WITH BED IN THE LOWEST POSITION AND CALL LIGHT IN REACH;WILL CONTINUE TO MONITOR
--- NOTE | 2018-12-12 09:45 | NUR ---
CPT DONE TO POSTERIOR LUNG PEREZ. NON-PRODUCTIVE COUGH. TOLERATED WELL.
[2018-12-12 10:00] VITALS: BP 152/60
--- NOTE | 2018-12-12 10:00 | NUR ---
PT RESTING AT BEDSIDE WITH VISITORS IN ROOM;VS OBTAINED AND ASSESSMENT COMPLETED;PT DENIES ANY CURRENT PAIN OR DISCOMFORTS,PAIN SCALE AND REPORTING EDUCATED;RESPIRATIONS SHALLOW ON O2 @ 2L VIA NC;ABDOMEN DISTENDED/SOFT ON PALPATION AND ACTIVE IN ALL 4 QUADRANTS,FREQUENT SOFT STOOLS.MD AWARE;WEAK PEDAL PULSES;#22G TO LEFT FOREARM INFUSING D5 1/2 NS @ 75ML/HR,SITE APPEARS HEALTHY;SKIN TEAR NOTED TO RIGHT FOREARM,SITE CLEANSED WITH NORMAL SALINE AND TELFA AND KERLEX APPLIED;PHOTOGRAPH IN CHART;TELE MONITORING IN PLACE;PT DENIES ANY ADDITIONAL NEEDS AT THIS TIME AND IS ENCOURAGED TO CALL FOR ASSISTANCE IF NEEDED;CALL LIGHT IN REACH;WILL CONTINUE TO MONITOR
--- NOTE | 2018-12-12 11:30 | NUR ---
PT AMBULATING THE HALLWAY WITH PHYSICAL THERAPY AND STEADY GAIT.
[2018-12-12 11:41] VITALS: BP 128/53
--- NOTE | 2018-12-12 11:50 | NUR ---
PT RESTING IN SEMI FOWLERS POSITION;RESPIRATIONS REMAIN EVEN AND UNLABORED ON O2 @ 2L VIA NC,EXERTIONAL SOB NOTED AT TIMES;PT DENIES ANY CURRENT PAIN OR DISCOMFORTS;IV FLUIDS DECREASED TO KVO PER MD ORDER;TELE MONITORING IN PLACE;PT DENIES ANY ADDITIONAL NEEDS AND IS ENCOURAGED TO CALL FOR ASSISTANCE IF NEEDED;CALL LIGHT IN REACH;WILL CONTINUE TO MONITOR
--- NOTE | 2018-12-12 11:53 | NUR ---
Pt seen this am for treatment. He was resting in bed with company present, who left when PT begun. Pt moved supine to sit indep and was aware of IV line and 02 lines. He ambulated with RW/02 at 2L 2x 80 with SBA/CGA. Pt 02 sat 96 to 97% and HR 66 to 76. Pt left on edge of bed with call hyman and tray in reach.
[2018-12-12 15:35] VITALS: BP 147/68
--- NOTE | 2018-12-12 17:00 | NUR ---
PT RESTING AT BEDSIDE PLAYING CARDS;RESPIRATIONS EVEN AND UNLABORED ON O2 @ 2L VIA NC;PT DENIES ANY CURRENT PAIN OR NEEDS;IV SITE TO LFA REMAINS PATENT INFUSING @ KVO;PT DENIES ANY ADDITIONAL NEEDS AT THIS TIME AND IS ENCOURAGED TO CALL FOR ASSISTANCE IF NEEDED;CALL LIGHT IN REACH;WILL CONTINUE TO MONITOR
--- NOTE | 2018-12-12 17:42 | NUR ---
AT BEDSIDE DISCUSSING POC.
[2018-12-12 19:48] VITALS: BP 143/69
--- NOTE | 2018-12-13 00:14 | NUR ---
PATIENT RESTING IN BED WITH O2 VIA NASAL CANNULA IN PLACE. EYES ARE CLOSED AND PATIENT APPEARS SLEEPING. RESP ARE EVEN AND UNLABORED AT THIS TIME. CALL LIGHT IN REACH. WILL CONT TO MONITOR.
[2018-12-13 03:44] VITALS: BP 170/82
--- NOTE | 2018-12-13 04:00 | NUR ---
PATIENT RESTING IN BED-APPEARS SLEEPING AT THIS TIME WITH O2 VIA NASAL CANNULA IN PLACE. RESPS ARE EVEN AND UNLABORED. CALL LIGHT IN REACH. WILL CONT TO MONITOR.
[2018-12-13 05:28] VITALS: BP 148/70
--- NOTE | 2018-12-13 05:53 | NUR ---
PATIENT REFUSED CPT AT THE MOMENT.
--- NOTE | 2018-12-13 07:20 | NUR ---
REPORT RECEIVED FROM JO TROTTER;PT RESTING AT BEDSIDE,A&O X3;INTRODUCED SELF TO PT AND POC DISCUSSED;RESPIRATIONS EVEN AND UNLABORED ON O2 @ 2L VIA NC;PT DENIES ANY CURRENT PAIN OR DISCOMFORTS;IV FLUIDS INFUSING WELL @ KVO PER ORDER;PT ENCOURAGED TO CALL FOR ASSISTANCE IF NEEDED;CALL LIGHT IN REACH;WILL CONTINUE TO MONITOR
--- NOTE | 2018-12-13 08:12 | NUR ---
AT BEDSIDE DISCUSSING POC INCLUDING D/C TO REHAB.
[2018-12-13 08:34] VITALS: BP 155/75
--- NOTE | 2018-12-13 08:35 | NUR ---
PT RESTING AT BEDSIDE,A&O X3;VS OBTAINED AND ASSESSMENT COMPLETED;PT DENIES ANY CURRENT PAIN,PAIN SCALE AND REPORTING EDUCATED;RESPIRATIONS SHALLOW ON O2 @ 2L VIA NS,NON-PRODUCTIVE COUGH NOTED AT TIMES;ABDOMEN SOFT ON PALPATION AND ACTIVE IN ALL 4 QUADRANTS;WEAK PEDAL PULSES;#22G TO RIGHT FOREARM INFUSING D5 1/2 NS @ KVO PER ORDER;DRESSING TO RFA SKIN TEAR CDI;PT DENIES ANY CURRENT NEEDS AND IS ENCOURAGED TO CALL FOR ASSISTANCE IF NEEDED;CALL LIGHT IN REACH;WILL CONTINUE TO MONITOR
[2018-12-13 08:51] LABS: HEMATOCRIT 43.3 % (39.0-50.0); HEMOGLOBIN 13.3 g/dl (14.0-18.0); IMMATURE GRANULOCYTES 0.7 % (0.0-5.0); MEAN CELL VOLUME 89.3 fL CALC (80.0-100.0); MEAN CORPUSCULAR HGB 27.4 pG CALC (26.0-32.0); MEAN CORPUSCULAR HGB CONC 30.7 g/L CALC (32.0-36.0); NEUT# 8.13 thou/uL (1.82-7.42); RED BLOOD COUNT 4.85 mill/uL (4.70-6.10); RED CELL DISTRI WIDTH 17.9 % (11.5-15.5)
--- NOTE | 2018-12-13 09:00 | NUR ---
PT TRANSFERRED TO [facility] VIA WHEELCHAIR IN STABLE CONDITION ACCOMPANIED BY VOLUNTEER.
--- NOTE | 2018-12-13 09:15 | NUR ---
PT RETURNED BACK TO ROOM 291 IN STABLE CONDITION.
[2018-12-13 09:20] LABS: ANION GAP 11 (6-22 (CALC)); BUN 21 mg/dL (8-23); BUN/CREATININE RATIO 25 (12-20 (CALC)); CARBON DIOXIDE 34 mmol/l (22-30); CHLORIDE 100 mmol/l (95-108); CREATININE 0.8 mg/dL (0.7-1.3); GFR > 60 ML/MIN (>=60 (CALC)); GFR FOR AFR.AMER. > 60 ML/MIN (>=60 (CALC)); POTASSIUM 4.2 mmol/l (3.5-5.1); SODIUM 140 mmol/l (137-146)
[2018-12-13 11:25] VITALS: BP 154/78
--- NOTE | 2018-12-13 12:05 | NUR ---
PT RESTING AT BEDSIDE EATING LUNCH;RESPIRATIONS REMAIN EVEN AND UNLABORED ON O2 @ 2L VIA NC;PT DENIES ANY CURRENT PAIN OR NEEDS BUT DOES EXPRESS WISHES TO GO HOME INSTEAD OF REHAB;LILA REPORTEDLY CALLED EARLIER TODAY REGARDING REQUEST;IV SITE TO RIGHT FOREARM REMAINS PATENT;PT ENCOURAGED TO CALL FOR ASSISTANCE IF NEEDED;CALL LIGHT IN REACH;WILL CONTINUE TO MONITOR
[2018-12-13 15:00] VITALS: BP 119/60
[2018-12-13] MEDS ORDERED: METRONIDAZOLE500 MG PO (15:41)
--- NOTE | 2018-12-13 15:41 | NUR ---
PT AMBULATING WITH PHYSICAL THERAPY.
[2018-12-13] MEDS ORDERED: Levaquin PO (15:43)
[2018-12-13] MEDS ORDERED: ALPRAZOLAM0.5 MG PO (15:43)
--- NOTE | 2018-12-13 16:00 | NUR ---
PT AMBULATING BACK FROM THE BATHROOM AFTER RECEIVING A SHOWER WITH A WEAK GAIT;RE-POSITIONED IN BED FOR COMFORT;RESPIRATIONS REMAIN SHALLOW ON O2 @ 2L VIA NC;PT DENIES ANY CURRENT PAIN OR NEEDS;SKIN TEAR TO RIGHT FOREARM DRESSED WITH VASELINE GUAZE,TELFA AND KERLEX;AWAITING TRANSFER TO [facility];PT ENCOURAGED TO CALL FOR ASSISTANCE IF NEEDED;CALL LIGHT IN REACH;WILL CONTINUE TO MONITOR
--- NOTE | 2018-12-13 16:20 | NUR ---
Patient found resting sitting at edge of bed and in agreement to participate in gait training, gait belt applied. Sit to stand to RW done with light CGA x1. Patient ambulated 2 x 75 feet using RW and with portable O2 at 2L and light CGA x1. Patient returned to sitting in bed, O2 sats monitored and were 96% prior to ambulation, 94% during ambulation and back to 96% after resting in bed. Patient required verbal cues during ambulation for breathing techniques and to slow down, no LOB. Patient left sitting without questions or concerns.
--- NOTE | 2018-12-13 19:00 | NUR ---
PT TRANSPORTED TO [facility] VIA WHEELCHAIR IN STABLE CONDITION ACCOMPANIED BY [facility] STAFF MEMEBER. O2 @ 2L PROVIDED FOR TRANSPORT.
--- NOTE | 2018-12-13 19:10 | NUR ---
REPORT CALLED TO JO SHAIKH AT [facility]
== END 2018-12-13 19:00 | DRG 190 ==
LOC: ED 08:09 → ED-I 09:51 → ED 10:08 → MS2 10:09
PROVIDERS: Family Medicine; ADMIT Internal Medicine Geriatric Medicine; ATTEND Internal Medicine Geriatric Medicine
DX: J44.1 Chronic obstructive pulmonary disease with (acute) exacerbation (principal); J18.9 Pneumonia, unspecified organism; J44.0 Chronic obstructive pulmonary disease with (acute) lower respiratory infection; I12.9 Hypertensive chronic kidney disease with stage 1 through stage 4 chronic kidney disease, or unspecified chronic kidney disease; N18.9 Chronic kidney disease, unspecified; F41.1 Generalized anxiety disorder; I25.10 Atherosclerotic heart disease of native coronary artery without angina pectoris; M48.54XD Collapsed vertebra, not elsewhere classified, thoracic region, subsequent encounter for fracture with routine healing; M19.90 Unspecified osteoarthritis, unspecified site; Z99.81 Dependence on supplemental oxygen; Z95.0 Presence of cardiac pacemaker
CPT/HCPCS: G0378

== ENCOUNTER → 2018-12-14 | Outpatient (REF) | payer MEDICARE ==
[~2018-12-14] MED LIST changes: +ALPRAZOLAM0.5 MG PO; +ASPIRIN LOW DOS81 MG PO; +DICLOFENAC75 MG PO; +GABAPENTIN100 MG PO; +LOPRESSOR25 MG PO; +Levaquin PO; +METRONIDAZOLE500 MG PO; +PROTONIX40 M2 PO; +STOOL SOFTNR100 M2 PO; +ZYLOPRIM300 MG PO
== END | disposition home or self-care (01) ==
LOC: RT 16:35
PROVIDERS: ATTEND Internal Medicine Geriatric Medicine
DX: R06.02 Shortness of breath (principal)

== ENCOUNTER 2018-12-20 18:47 | Inpatient (IN) | payer MEDICARE ==
[~2018-12-20] VITALS: Ht 182.9 cm; Wt 77.7 kg
[~2018-12-20 18:47] MED LIST changes: -ASPIRIN LOW DOS81 MG PO; -DICLOFENAC75 MG PO; -GABAPENTIN100 MG PO; -LOPRESSOR25 MG PO; -PROTONIX40 M2 PO; -STOOL SOFTNR100 M2 PO; -ZYLOPRIM300 MG PO
--- NOTE | 2018-12-20 18:47 | NUR ---
PT TO ROOM VIA EMS STRETCHER. PT A&O X 3, SPEECH IS CLEAR AND PT IS TALKATIVE.
[2018-12-20 19:17] LABS: HEMATOCRIT 43.2 % (39.0-50.0); HEMOGLOBIN 13.4 g/dl (14.0-18.0); IMMATURE GRANULOCYTES 0.5 % (0.0-5.0); MEAN CELL VOLUME 90.4 fL CALC (80.0-100.0); NEUT# 7.17 thou/uL (1.82-7.42); RED BLOOD COUNT 4.78 mill/uL (4.70-6.10); RED CELL DISTRI WIDTH 18.5 % (11.5-15.5)
--- NOTE | 2018-12-20 19:20 | NUR ---
CARE ASSUMED. PATIENT RESTING ON STRETCHER. PATIENT C/O SOB BUT IS WUITE TALKATIVE. CURRENTLY ON 2L NC AND TOLERATING WELL.
[2018-12-20 19:36] LABS: ALBUMIN 3.3 g/dL (3.2-5.0); ALKALINE PHOSPHATASE 92 u/l (38-126); ANION GAP 10 (6-22 (CALC)); BILIRUBIN, TOTAL 0.9 mg/dL (0.0-1.4); BUN 22 mg/dL (8-23); BUN/CREATININE RATIO 25 (12-20 (CALC)); CARBON DIOXIDE 33 mmol/l (22-30); CHLORIDE 103 mmol/l (95-108); CREATININE 0.9 mg/dL (0.7-1.3); GFR > 60 ML/MIN (>=60 (CALC)); GFR FOR AFR.AMER. > 60 ML/MIN (>=60 (CALC)); POTASSIUM 4.3 mmol/l (3.5-5.1); SGOT/AST 30 u/l (19-48); SODIUM 142 mmol/l (137-146); TOTAL PROTEIN 5.9 g/dL (6.3-8.2)
[2018-12-20 19:48] LABS: MYOGLOBIN 41 ng/mL (0 - 121)
--- NOTE | 2018-12-20 20:10 | NUR ---
PATIENT STATES HE FEELS HE SHOULD BE ADMITTED. STATES HE IS GOING TO TELL THE DR HE IS FEELING WEAK WELL SOB.
--- NOTE | 2018-12-20 20:43 | NUR ---
ALL DIAGNOSTICS COMPLETED. AWAITING MD FOR PLAN OF CARE. PATIENT RESTING ON STRETCHER IN NO ACUTE DISTRESS.
--- NOTE | 2018-12-20 21:15 | NUR ---
PATIENT NIECE AT BEDSIDE. INFORMED BY MD OF PLANS TO ADMIT.
--- NOTE | 2018-12-20 22:18 | NUR ---
REPORT CALLED TO NILSON VALADEZ. PATIENT READIED FOR TRANSPORT TO FLOOR VIA STRETCHER, ON MONITOR, WITH O2 VIA NC
[2018-12-20 22:38] VITALS: BP 157/85
--- NOTE | 2018-12-20 22:38 | NUR ---
PT ARRIVES TO THE FLOOR VIA STRETCHER IN STABLE CONDITION WITH ER STAFF. PT AMBULATED FROM STREACHER TO BED WITH UNSTEADY GAIT. VS OBTAINED. PT REQUESTING A SLEEPING PILL. ASSESMENT COMPLETED AT THIS TIME. LUNG SOUNDS DIMINISHED. TRACE EDEMA TO RIGHT LEG. DRESSING FROM REHAB STILL ON PTS ARM, REMOVED, PT STATES ITS A SKIN TEAR FROM D/C FROM LAST VISIT. PHOTO OBTAINED, CLEANED AND BANDAID APPLIED. NO OTHER NEEDS FROM PT AT THIS TIME. ORIENTED TO ROOM AND CALL MONSON SYSTEM. WILL CONTINUE TO MONITOR.
--- NOTE | 2018-12-21 | NUR ---
PT RESTING QUIETLY IN BED WITH EYES CLOSED. NO S/S OF DISTRESS NOTED. IV INFUSING WELL. 02 @ 2L.
[2018-12-21 00:22] VITALS: BP 132/64
[2018-12-21 04:23] VITALS: BP 156/83
--- NOTE | 2018-12-21 05:00 | NUR ---
PT SPILLED URINAL ON SELF. ASSISTED TO SHOWER BY NURSE INTERN. WILL CONTINUE TO MONITOR.
--- NOTE | 2018-12-21 08:00 | NUR ---
SHIFT CHANGE REPORT, PT AWAKE ALERT AND ORIENTED, C/O HEADACHE AT THIS TIME, TELE MONITOR IN PLACE, CALL MONSON IN REACH, WILL CONTINUE TO MONITOR AND ADDRESS NEEDS.
[2018-12-21 08:28] LABS: IMMATURE GRANULOCYTES 0.5 % (0.0-5.0); MEAN CELL VOLUME 88.4 fL CALC (80.0-100.0); MEAN CORPUSCULAR HGB 27.4 pG CALC (26.0-32.0); NEUT# 3.41 thou/uL (1.82-7.42); RED BLOOD COUNT 4.75 mill/uL (4.70-6.10)
[2018-12-21 08:47] LABS: ALBUMIN 2.9 g/dL (3.2-5.0); ALKALINE PHOSPHATASE 82 u/l (38-126); ANION GAP 10 (6-22 (CALC)); BILIRUBIN, TOTAL 0.5 mg/dL (0.0-1.4); BUN 22 mg/dL (8-23); BUN/CREATININE RATIO 29 (12-20 (CALC)); CARBON DIOXIDE 31 mmol/l (22-30); CHLORIDE 103 mmol/l (95-108); CREATININE 0.8 mg/dL (0.7-1.3); GFR > 60 ML/MIN (>=60 (CALC)); GFR FOR AFR.AMER. > 60 ML/MIN (>=60 (CALC)); POTASSIUM 4.3 mmol/l (3.5-5.1); SGOT/AST 19 u/l (19-48); SODIUM 140 mmol/l (137-146); TOTAL PROTEIN 5.1 g/dL (6.3-8.2)
[2018-12-21 09:25] VITALS: BP 146/77
[2018-12-21 11:15] VITALS: BP 119/75
--- NOTE | 2018-12-21 11:30 | NUR ---
DR PERDUE CONTACTED ABOUT PT'S HOME MEDS ED RECORDED UNABLE TO OBTAIN HOME MED HISTORY, DR PERDUE ADVISED TO HAVE PT'S NIECE BRING IN MEDS TO PROFILE THEM. NIECE STEPHANIE BROUGHT IN MEDS, ASKED IN L LOUD VOICE WHETHER HE HAD GOTTEN HIS AM MEDS YET, I ASKED WHICH MEDS SHE WAS REFERRING TO AND SHE SAID HIS BP MEDS. I TOLD HER WE DID NOT HAVE THE INFORMATION TO PROFILE HIS MEDS, I CONTACTED DR PERDUE WHO REQUEST TO HAVE HER BRING IN MEDS TO PROFILE THEM. SHE RESPONDED IN A BOISTEROUS VOICE, "HE DID NOT HAVE HIS MEDICATIONS YET, I AM GOING TO GIVE HIM HIS MEDICATIONS NOW, HE JUST LEFT THE HOSPITAL AND DOES NOT HAVE HIS LIST!" SHE STORMED INTO PT'S ROOM WITH THE BAG OF MEDS AND GAVE HIM A NUMBER OF MEDICATIONS WHICH SHE LATER IDENTIFIED TO NURSE.
[2018-12-21] MEDS ORDERED: LOPRESSOR25 MG PO (14:59)
--- NOTE | 2018-12-21 16:00 | NUR ---
RELAXING N ROOM SOCIALISING WITH FAMILY/FRIENDS, ALL NEEDS MET.
[2018-12-21] MEDS ORDERED: GABAPENTIN100 MG PO (16:17)
[2018-12-21] MEDS ORDERED: ZYLOPRIM300 MG PO (16:17)
[2018-12-21] MEDS ORDERED: STOOL SOFTNR100 M2 PO (16:19)
[2018-12-21] MEDS ORDERED: DICLOFENAC75 MG PO (16:19)
[2018-12-21] MEDS ORDERED: PROTONIX40 M2 PO (16:20)
[2018-12-21] MEDS ORDERED: ASPIRIN LOW DOS81 MG PO (16:21)
--- NOTE | 2018-12-21 16:26 | NUR ---
Counseled patient on the indication, potential side effects, when and how to take all of his medications. Patient was not knowledgeable about the meds he is taking but acknowledged counseling. Did not have questions. Optained med lists dropped off by patient's niece and Medications were reconsiled.
[2018-12-21 17:20] VITALS: BP 156/71
--- NOTE | 2018-12-21 19:15 | NUR ---
REPORT FROM DIPIKA OSORIO. PT RESTING IN BED. ALERT AND ORIENTED. PT DENIES ANY PAIN OR DISCOMFORT. RESPIRATIONS EVEN AND UNLABORED. 02 @2L/M VIA NC. IV SITE APPEARS HEALTHY. EDUCATED PT ON EMS SITE. PT REFUSED AT THIS TIME. DISCUSSED POC. PT VERBALIZED UNDERSTANDING. CALL LIGHT WITHIN REACH. WILL CONTINUE TO MONITOR.
[2018-12-21 20:16] VITALS: BP 148/72
--- NOTE | 2018-12-21 22:20 | NUR ---
PT MEDICATED WITH PRN XANAX UPON REQUEST. PT NOTED TO BE A LITTLE ANXIOUS ABOUT MEDICATIONS NOT ORDERED. DISCUSSED WITH PT THAT MEDICATIONS WERE ORDERED AND THAT THE PHARMACY NEEDED TO PROFILE THEM AND THEN DESIGN ENGINEERING SPECIALIST COULD ADMINISTER MEDS. PT VERBALIZED UNDERSTANDING. CALL LIGHT WITHIN REACH. WILL CONTINUE TO MONITOR.
[2018-12-22 00:06] VITALS: BP 125/54
--- NOTE | 2018-12-22 02:52 | NUR ---
PT RESTING IN BED WITH EYES CLOSED. NO S/S OF DISTRESS NOTED. CALL LIGHT WITHIN REACH. WILL CONTINUE TO MONITOR.
[2018-12-22 04:00] VITALS: BP 130/61
[2018-12-22 05:04] LABS: IMMATURE GRANULOCYTES 0.5 % (0.0-5.0); MEAN CELL VOLUME 88.6 fL CALC (80.0-100.0); MEAN CORPUSCULAR HGB 27.4 pG CALC (26.0-32.0); MEAN CORPUSCULAR HGB CONC 30.9 g/L CALC (32.0-36.0); NEUT# 5.91 thou/uL (1.82-7.42); RED BLOOD COUNT 4.02 mill/uL (4.70-6.10); RED CELL DISTRI WIDTH 18.3 % (11.5-15.5)
[2018-12-22 05:06] LABS: HEMATOCRIT 35.6 % (39.0-50.0)
[2018-12-22 05:20] LABS: ANION GAP 10 (6-22 (CALC)); BUN 29 mg/dL (8-23); BUN/CREATININE RATIO 28 (12-20 (CALC)); CARBON DIOXIDE 33 mmol/l (22-30); CHLORIDE 103 mmol/l (95-108); CREATININE 1.1 mg/dL (0.7-1.3); GFR > 60 ML/MIN (>=60 (CALC)); GFR FOR AFR.AMER. > 60 ML/MIN (>=60 (CALC)); SODIUM 141 mmol/l (137-146)
--- NOTE | 2018-12-22 07:00 | NUR ---
REPORT REEIVED FROM GAB. PT IS SLEEPING ON HIS RIGHT SIDE WITH NO S/S OF DISTRESS NOTED. CALL LIGHT IN REACH.
[2018-12-22 07:49] VITALS: BP 148/76
--- NOTE | 2018-12-22 08:06 | NUR ---
PT IS SITTING IN THE SIDE OF THE BED. ASSESSMENT DONE. TELE IN PLACE. PT IS A&O X3. PT DENIES ANY PAIN AT THIS TIME. 02 AT 2L VIA NC. SAFETY PRECAUTIONS REINFORCED AND CALL LIGHT IN REACH.
[2018-12-22 11:05] VITALS: BP 116/59
--- NOTE | 2018-12-22 11:54 | NUR ---
CALLED RE: PT NOT FEELING WELL AND PT STATED HE FEELS NAUSEA. ORDERS RECEIVED.
[2018-12-22 15:19] VITALS: BP 136/67
--- NOTE | 2018-12-22 15:24 | NUR ---
PT STATED THAT ZOFRAN MEDICATION DID HELP. PT STATED HE EAT ICE CREAM. X2 UNSUCCESSFUL IV ATTEMPTS . PT STATED NO MORE IV ATTEMPTS AT THIS TIME. EMS IV FLUSHES WELL. PT DENIES ANY NEEDS AT THIS TIME. CALL LIGHT IN REACH.
[2018-12-22 19:00] VITALS: BP 128/53
--- NOTE | 2018-12-22 20:10 | NUR ---
PT RESTING IN BED, NO SIGNS OF DISTRESS NOTED, RESP EVEN AND UNLABORED. DISCUSSED POC, PT ALERT AND ORIENTED X3. 02 2L NC. EMS SITE INFILTRATED IV REMOVED, CATHETER INTACT, NEW IV STARTED TO LW PT TOLERATED WELL. PT REQUESTING SOMETHING FOR SLEEP AND FOR HIS ZOLOFT. ASSESSMENT COMPLETED, CALL LIGHT IN REACH,CONTINUE TO MONITOR. PT STATES HE WOULD LIKE TO AMBULATE AFTER IV ANTIBIOTICS INFUSION. INSTRUCTED TO CALL.
--- NOTE | 2018-12-22 20:53 | NUR ---
CALLED FOR PRN ORDERS AND TO RESTART ZOLOFT PER PT REQUEST. ORDERS RECEIVED.
--- NOTE | 2018-12-22 22:29 | NUR ---
PT IV INFUSIONS ARE COMPLETED, CALL LIGHT IN REACH,CONTINUE TO MONITOR.
[2018-12-23] VITALS (8 sets, daily range): BP systolic 107–174; BP diastolic 61–83
--- NOTE | 2018-12-23 00:10 | NUR ---
PT RESTING IN BED WITH EYES CLOSED, NO SIGNS OF DISTRESS NOTED, RESP EVEN AND UNLABORED. CALL LIGHT IN REACH,CONTINUE TO MONITOR.
[2018-12-23 06:43] LABS: HEMATOCRIT 40.1 % (39.0-50.0); HEMOGLOBIN 11.9 g/dl (14.0-18.0); IMMATURE GRANULOCYTES 0.3 % (0.0-5.0); MEAN CELL VOLUME 91.3 fL CALC (80.0-100.0); MEAN CORPUSCULAR HGB 27.1 pG CALC (26.0-32.0); MEAN CORPUSCULAR HGB CONC 29.7 g/L CALC (32.0-36.0); NEUT# 4.86 thou/uL (1.82-7.42); RED BLOOD COUNT 4.39 mill/uL (4.70-6.10); RED CELL DISTRI WIDTH 18.6 % (11.5-15.5)
[2018-12-23 06:56] LABS: ANION GAP 9 (6-22 (CALC)); BUN 20 mg/dL (8-23); BUN/CREATININE RATIO 20 (12-20 (CALC)); CARBON DIOXIDE 32 mmol/l (22-30); CHLORIDE 104 mmol/l (95-108); GFR > 60 ML/MIN (>=60 (CALC)); GFR FOR AFR.AMER. > 60 ML/MIN (>=60 (CALC)); POTASSIUM 4.2 mmol/l (3.5-5.1); SODIUM 141 mmol/l (137-146)
--- NOTE | 2018-12-23 07:27 | NUR ---
REPORT WAS RECEIVED FROM SYDNEY. PT IS SITTING IN THE SIDE OF THE BED. MEDICATED PT WITH MOTRIN FOR A HEADACHE SEE EMAR. ASSESSMENT DONE. TELE IN PLACE. PT IS A&O X3. PT DENIES ANY OTHER NEEDS AT THIS TIME. CALL LIGHT IN REACH.
--- NOTE | 2018-12-23 11:34 | NUR ---
PT IS SITTING IN THE SIDE OF THE BED. PLAYING CARDS. PT DENIES ANY NEEDS AT THIS TIME. PT DENIES ANY PAIN. CALL LIGHT IN REACH.
--- NOTE | 2018-12-23 15:05 | NUR ---
PT IS RESTING IN HIS LEFT SIDE IN BED. PT STATED PAIN IN RIGHT HIP THAT IS SORE. MILD REDNESS NOTED WITH A DRY SCAB. A DUODERM APPLIED. PT DENIES ANY OTHER NEEDS AT THIS TIME. CALL LIGHT IN REACH.
--- NOTE | 2018-12-23 20:00 | NUR ---
PATIENT RESTING IN BED AT THIS TIME-AWAKE ALERT AND ORIENTEDX3. TELE MONITOR IN PLACE. SALINE LOCK TO LEEFT FOREARM. SITE APPEARS HEALTHY AT THIS TIME. PATIENT IS VOIDING CLEAR YELLOW URINE IN URINAL. PATIENT STATES THAT HE DID HAVE BM TODAY. SAFETY PRECAUTIONS REINFORCED. CALL LIGHT IN REACH. WILL CONT TO MONITOR.
--- NOTE | 2018-12-23 21:30 | NUR ---
PATIENT RESTING IN BED-MEDICATED FOR BACK PAIN WITH LORTAB 5/2325MG PO. O2 VIA NASAL CANNULA IN PLACE. TELE MONITOR IN PLACE. IV AZITHRO INFUSING ORDERED. CALL LIGHT IN REACH. WILL CONT TO MONITOR.
--- NOTE | 2018-12-24 00:35 | NUR ---
PATIENT RESTING IN BED-MEDICATED FOR BACK PAIN WITH LORTAB 5/325MG PO. ROCEPHIN HUNG ORDERED. NON-PRODUCTIVE COUGH NOTED. SAFETY PRECAUTIONS REINFORCED. O2 VIA NASAL CANNULA IN PLACE. CALL LIGHT IN REACH. WILL CONT TO MONITOR.
--- NOTE | 2018-12-24 00:37 | NUR ---
PATIENT APPEARS SLEEPING AT THIS TIME WITH O2 VIA NASAL CANNULA IN PLACE. TELE MONITOR IN PLACE. CALL LIGHT IN REACH. WILL CONT TO MONITOR.
[2018-12-24 04:29] VITALS: BP 165/77
--- NOTE | 2018-12-24 05:09 | NUR ---
PATIENT RESTING IN BED-C/O NAUSEA AND HEADACHE. MEDICATED WITH LORTAB 5/325MG PO FOR PAIN AND WITH ZOFRAN 4MG IVP FOR NAUSEA. CALL LIGHT IN REACH. WILL CONT TO MONITOR.
[2018-12-24 05:10] LABS: HEMATOCRIT 37.5 % (39.0-50.0); HEMOGLOBIN 11.6 g/dl (14.0-18.0); IMMATURE GRANULOCYTES 0.5 % (0.0-5.0); MEAN CELL VOLUME 89.5 fL CALC (80.0-100.0); MEAN CORPUSCULAR HGB 27.7 pG CALC (26.0-32.0); MEAN CORPUSCULAR HGB CONC 30.9 g/L CALC (32.0-36.0); NEUT# 4.88 thou/uL (1.82-7.42); RED BLOOD COUNT 4.19 mill/uL (4.70-6.10); RED CELL DISTRI WIDTH 18.3 % (11.5-15.5)
[2018-12-24 05:27] LABS: ANION GAP 9 (6-22 (CALC)); BUN 19 mg/dL (8-23); BUN/CREATININE RATIO 20 (12-20 (CALC)); CARBON DIOXIDE 34 mmol/l (22-30); CHLORIDE 103 mmol/l (95-108); GFR > 60 ML/MIN (>=60 (CALC)); GFR FOR AFR.AMER. > 60 ML/MIN (>=60 (CALC)); POTASSIUM 4.3 mmol/l (3.5-5.1); SODIUM 141 mmol/l (137-146)
[2018-12-24] MEDS ORDERED: PREDNISONE20 MG PO (07:09)
[2018-12-24] MEDS ORDERED: LEVAQUIN750 MG PO (07:09)
--- NOTE | 2018-12-24 07:37 | NUR ---
SHIFT CHANGE REPORT, PT AWAKE ALERT AND ORIENTED RESTING IN BED, STATES HE FEELS MUCH BETTER TODAY, NO NEW COMOPLAIN, O2 @ 2L VIA NC IN PLACE, TELE MONITOR IN PLACE, CALL MONSON IN REACH.
[2018-12-24 07:51] VITALS: BP 166/66
--- NOTE | 2018-12-24 08:18 | NUR ---
DANGELO SWEENEY JUST CALLED INFORMING US 272'S RHYTHM DOES TO LOOK LIKE HIS NORMAL SR, PT EVALUATED AND IS IN NO DISTRESS BUT IS BEING SHAVED WITH VIBRATING ELECTRIC SHAVER, WILL CONTINUE TO MONITOR.
--- NOTE | 2018-12-24 10:53 | NUR ---
PT RESTING IN BED COMFORTABLY, ED REPORT 1 BEAT V-TACH NOW AND 1 FEW MINUTES EARLIER, PT DENIES ANY FORM DISCOMFORT BUT STATES HE IS TIRED, HE WAS JUST AWAKENED FROM SLEEP. ORDERS WRITTEN.
[2018-12-24 11:25] VITALS: BP 121/68
--- NOTE | 2018-12-24 12:47 | NUR ---
RESTING IN BED NOW, DENIES DISCOMFORT, ALL NEEDS ADDRESSED.
--- NOTE | 2018-12-24 16:21 | NUR ---
RESTING IN BED AT THIS TIME, ALL NEEDS ADDRESSED, SOCIALISING WITH FRIENDS/FAMILY.
[2018-12-24 16:44] VITALS: BP 131/71
[2018-12-24 19:34] VITALS: BP 138/64
--- NOTE | 2018-12-24 19:49 | NUR ---
PATIENT RESTING IN BED WITH O2 VIA NASAL CANNULA IN PLACE. PATIENT IS AWAKE ALERT AND ORIENTEDX3. TELE MONITOR IN PLACE. IV SITE TO LEFT FOREARM INTACT AND APPEARS HEALTHY AT THIS TIME. VOIDING QS CLEAR YELLOW URINE IN URINAL. PATIENT STATES THAT HE DID HAVE BM TODAY. SAFETY PRECAUTIONS REINFORCED. CALL LIGHT IN REACH. WILL CONT TO MONITOR.
--- NOTE | 2018-12-24 22:03 | NUR ---
PATIENT RESTING IN BED WITH O2 VIA NASAL CANNULA IN PLACE. TELE MONITOR IN PLACE. PATIENT MEDICATED FOR SLEEP WITH RESTORIL AND XANAX AND FOR PAIN WITH LORTAB 4/325MG PO. ROCEPHIN INFUSING VIA LEFT ARM SITE. SITE REMAINS HEALTHY AT THIS TIME. SAFETY PRECAUTIONS REINFORCED.CALL LIGHT IN REACH. WILL CONT TO MONITOR.
[2018-12-25] VITALS (7 sets, daily range): BP systolic 106–160; BP diastolic 47–78
--- NOTE | 2018-12-25 01:29 | NUR ---
PATIENT APPEARS SLEEPING AT THIS TIME WITH O2 VIA NASAL CANNULA IN PLACE. TELE MONITOR IN PLACE. CALL LIGHT IN REACH. WILL CONT TO MONITOR.
--- NOTE | 2018-12-25 04:29 | NUR ---
PATIENT APPEARS SLEEPING WITH O2 VIA NASAL CANNULA IN PLACE. TELE MONITOR IN PLACE. CALL LIGHT IN REACH. WILL CONT TO MONITOR.
--- NOTE | 2018-12-25 07:00 | NUR ---
REPORT REEIVED FROM JO TROTTER; PT LAYING ON HIS RT SIDE, APPEARS TO BE SLEEPING; NO S/S OF DISTRESS NOTED; CALL MONSON IN REACH.
[2018-12-25 07:43] LABS: HEMATOCRIT 39.5 % (39.0-50.0); HEMOGLOBIN 11.8 g/dl (14.0-18.0); IMMATURE GRANULOCYTES 0.2 % (0.0-5.0); MEAN CELL VOLUME 90.8 fL CALC (80.0-100.0); MEAN CORPUSCULAR HGB 27.1 pG CALC (26.0-32.0); MEAN CORPUSCULAR HGB CONC 29.9 g/L CALC (32.0-36.0); NEUT# 4.13 thou/uL (1.82-7.42); RED BLOOD COUNT 4.35 mill/uL (4.70-6.10); RED CELL DISTRI WIDTH 18.1 % (11.5-15.5)
[2018-12-25 08:26] LABS: ANION GAP 7 (6-22 (CALC)); BUN 16 mg/dL (8-23); BUN/CREATININE RATIO 19 (12-20 (CALC)); CARBON DIOXIDE 36 mmol/l (22-30); CHLORIDE 102 mmol/l (95-108); CREATININE 0.8 mg/dL (0.7-1.3); GFR > 60 ML/MIN (>=60 (CALC)); GFR FOR AFR.AMER. > 60 ML/MIN (>=60 (CALC)); POTASSIUM 4.2 mmol/l (3.5-5.1); SODIUM 141 mmol/l (137-146)
--- NOTE | 2018-12-25 08:44 | NUR ---
ASSESSMENT COMPLETED; A/OX3; RESP LABORED, 02@2L NC; IV FLUSHED WELL, SITE APPEARS HEALTHY; TELE IN PLACE; AM MEDS ADMINISTERED C/O OF NO PAIN, NO COUGH NOTED AT THIS TIME; BM THIS AM; URINAL AND CALL MONSON IN REACH; VOICE NO CONCERNS; SAFETY PRECAUTION REINFORE; WILL CONTINUE TO MONITOR.
--- NOTE | 2018-12-25 10:00 | NUR ---
MEDICATED WITH ZOFRAN FOR NAUSEA;
--- NOTE | 2018-12-25 11:31 | NUR ---
PT LAYING IN BED GETTING READY TO EAT LUNCH; [address]; RESP EVEN AND UNLABORED AT THIS TIME; NO COUGH NOTED; AMBULATORY IN ROOM; VOICE NO CONCERNS; CALL MONSON IN REACH.
--- NOTE | 2018-12-25 15:52 | NUR ---
PT AMBULATORY IN ROOM, MADE SEVERAL BATHROOM TRIPS; NOW SITTING UP IN BED EATING; 02 & TELE IN PLACE; CALL MONSON IN REACH; NO S/S OF DISTRESS NOTED
--- NOTE | 2018-12-25 18:04 | NUR ---
PT EATING SUPPER, VOICE NO CONCERNS, SEEMS VERY PLEASANT; 02@3L NC; CALL MONSON AND URINAL IN REACH.
[2018-12-26 04:56] VITALS: BP 159/83
--- NOTE | 2018-12-26 07:46 | NUR ---
SHIFT CHANGE REPORT, PT AWAKE ALERT AND ORIENTED SITTING UP ON SIDE OF BED, EXPRESSES FEELINGS OF LETHARGY, DEMOTIVATION AND WEAKNESS, STATES IF HE WERE AT HOME HE WOULD BE MORE ACTIVE WITH ALL THE CHILDREN AROUND. O2 @ 2L VIA NC IN PLACE, TELE MONITOR IN PLACE, WILL CONTINUE TO MONITOR AND ADDRESS CONCERNS.
[2018-12-26 08:40] VITALS: BP 131/58
[2018-12-26 08:46] VITALS: BP 131/58
--- NOTE | 2018-12-26 09:19 | NUR ---
DR PERDUE ROUNDED AND DISCUSSED D/C PLANS, PT ANXIOUS TO GO HOME, APPRECIATIVE OF PLANS.
[2018-12-26 09:31] LABS: HEMATOCRIT 41.8 % (39.0-50.0); HEMOGLOBIN 12.6 g/dl (14.0-18.0); IMMATURE GRANULOCYTES 0.1 % (0.0-5.0); MEAN CELL VOLUME 91.3 fL CALC (80.0-100.0); MEAN CORPUSCULAR HGB 27.5 pG CALC (26.0-32.0); MEAN CORPUSCULAR HGB CONC 30.1 g/L CALC (32.0-36.0); NEUT# 4.42 thou/uL (1.82-7.42); RED BLOOD COUNT 4.58 mill/uL (4.70-6.10)
[2018-12-26 10:00] LABS: ANION GAP 8 (6-22 (CALC)); BUN 15 mg/dL (8-23); BUN/CREATININE RATIO 17 (12-20 (CALC)); CARBON DIOXIDE 37 mmol/l (22-30); CHLORIDE 100 mmol/l (95-108); CREATININE 0.9 mg/dL (0.7-1.3); GFR > 60 ML/MIN (>=60 (CALC)); GFR FOR AFR.AMER. > 60 ML/MIN (>=60 (CALC)); POTASSIUM 4.2 mmol/l (3.5-5.1); SODIUM 141 mmol/l (137-146)
--- NOTE | 2018-12-26 10:44 | NUR ---
Discharge instructions given. Patient verbalizes understanding of same. Discharged in stable condition via Wheelchair to Home with family. All belongings sent with pt.
== END 2018-12-26 10:40 | disposition home health service (06) | DRG 190 ==
LOC: ED 18:47 → ED-I 19:22 → ED 21:25 → MS2 21:26
PROVIDERS: Emergency Medicine; ADMIT Internal Medicine Geriatric Medicine; ATTEND Internal Medicine Geriatric Medicine
DX: J44.1 Chronic obstructive pulmonary disease with (acute) exacerbation (principal); J18.9 Pneumonia, unspecified organism; J91.8 Pleural effusion in other conditions classified elsewhere; J44.0 Chronic obstructive pulmonary disease with (acute) lower respiratory infection; F17.200 Nicotine dependence, unspecified, uncomplicated; I25.10 Atherosclerotic heart disease of native coronary artery without angina pectoris; F41.1 Generalized anxiety disorder; I10 Essential (primary) hypertension; M19.90 Unspecified osteoarthritis, unspecified site; M48.54XD Collapsed vertebra, not elsewhere classified, thoracic region, subsequent encounter for fracture with routine healing; Z99.81 Dependence on supplemental oxygen

== ENCOUNTER 2019-01-06 11:58 | Emergency (ER) | payer MEDICARE ==
[~2019-01-06] VITALS: Ht 182.9 cm; Wt 81.8 kg
[~2019-01-06 11:58] MED LIST changes: +ASPIRIN LOW DOS81 MG PO; +DICLOFENAC75 MG PO; +GABAPENTIN100 MG PO; +LOPRESSOR25 MG PO; +PROTONIX40 M2 PO; +STOOL SOFTNR100 M2 PO; +ZYLOPRIM300 MG PO
[2019-01-06 12:18] LABS: HEMATOCRIT 39.7 % (39.0-50.0); HEMOGLOBIN 11.7 g/dl (14.0-18.0); IMMATURE GRANULOCYTES 0.8 % (0.0-5.0); MEAN CELL VOLUME 93.6 fL CALC (80.0-100.0); MEAN CORPUSCULAR HGB 27.6 pG CALC (26.0-32.0); MEAN CORPUSCULAR HGB CONC 29.5 g/L CALC (32.0-36.0); NEUT# 5.34 thou/uL (1.82-7.42); RED BLOOD COUNT 4.24 mill/uL (4.70-6.10); RED CELL DISTRI WIDTH 18.6 % (11.5-15.5)
[2019-01-06 12:27] LABS: INTERNATIONAL NORMALIZED RATIO 1.1 RATIO (0.7-1.3)
[2019-01-06 12:29] LABS: ANION GAP 10 (6-22 (CALC)); BUN 26 mg/dL (8-23); BUN/CREATININE RATIO 27 (12-20 (CALC)); CARBON DIOXIDE 33 mmol/l (22-30); CHLORIDE 105 mmol/l (95-108); GFR > 60 ML/MIN (>=60 (CALC)); GFR FOR AFR.AMER. > 60 ML/MIN (>=60 (CALC)); POTASSIUM 4.8 mmol/l (3.5-5.1); SODIUM 144 mmol/l (137-146)
[2019-01-06 14:09] VITALS: BP 144/72
== END 2019-01-06 14:10 | disposition short-term general hospital (02) ==
LOC: ED 11:58
PROVIDERS: Family Medicine
PROC: 05HM33Z Insertion of Infusion Device into Right Internal Jugular Vein, Percutaneous Approach (ICD-10-PCS; principal; 2019-01-06)
DX: I63.9 Cerebral infarction, unspecified (principal); R47.81 Slurred speech; R29.810 Facial weakness; R27.0 Ataxia, unspecified; I10 Essential (primary) hypertension; R29.706 NIHSS score 6; R53.1 Weakness; R94.31 Abnormal electrocardiogram [ECG] [EKG]; R51 Headache; Z95.0 Presence of cardiac pacemaker; F17.200 Nicotine dependence, unspecified, uncomplicated

== ENCOUNTER 2019-06-20 10:40 | Emergency (ER) | payer MEDICARE ==
[~2019-06-20] VITALS: Ht 172.7 cm; Wt 81.8 kg
[2019-06-20] MEDS ORDERED: LASIX 20 MG TAB20 MG PO (11:09)
[2019-06-20] MEDS ORDERED: POTASSI24 XX (11:09)
[2019-06-20 11:10] LABS: MEAN CELL VOLUME 92.9 fL CALC (80.0-100.0); MEAN CORPUSCULAR HGB 29.1 pG CALC (26.0-32.0); MEAN CORPUSCULAR HGB CONC 31.3 g/L CALC (32.0-36.0); NEUT# 17.48 thou/uL (1.82-7.42); RED BLOOD COUNT 5.09 mill/uL (4.70-6.10); RED CELL DISTRI WIDTH 19.9 % (11.5-15.5)
[2019-06-20] MEDS ORDERED: DECADRON0.5 MG PO (11:10)
[2019-06-20] MEDS ORDERED: MORPHINE XX (11:10)
[2019-06-20] MEDS ORDERED: ZOLOFT25 MG PO (11:10)
[2019-06-20] MEDS ORDERED: ALPRAZOLAM1 MG PO (11:10)
[2019-06-20 11:11] LABS: HEMATOCRIT 47.3 % (39.0-50.0); HEMOGLOBIN 14.8 g/dl (14.0-18.0)
[2019-06-20 11:43] LABS: CREATININE 1.6 mg/dL (0.7-1.3); POTASSIUM 4.6 mmol/l (3.5-5.1)
[2019-06-20 11:47] LABS: ALBUMIN 3.7 g/dL (3.2-5.0); TOTAL PROTEIN 6.3 g/dL (6.3-8.2)
[2019-06-20] MEDS ORDERED: ATORVASTATIN CA40 MG PO (13:19)
[2019-06-20] MEDS ORDERED: ASPIRIN81 MG PO (13:19)
[2019-06-20] MEDS ORDERED: XARELTO10 MG PO (13:19)
[2019-06-20] MEDS ORDERED: PROCHLORPER25 MG RE (13:21)
[2019-06-20] MEDS ORDERED: TAMSULOSIN0.4 MG PO (13:22)
[2019-06-20 13:30] LABS: URINE BILIRUBIN - DIPSTICK NEGATIVE (NEGATIVE); URINE BLOOD DIPSTICK NEGATIVE (NEGATIVE); URINE COLOR YELLOW; URINE GLUCOSE - DIPSTICK NEGATIVE (NEGATIVE); URINE KETONE NEGATIVE (NEGATIVE); URINE LEUK ESTERASE TRACE (NEGATIVE); URINE NITRITE - DIPSTICK NEGATIVE (Negative); URINE PH 5.5 (4.5-8.0); URINE PROTEIN - DIPSTICK NEGATIVE (NEG-TRACE); URINE UROBILINOGEN - DIPSTICK 0.2 E.U./dL (0.2)
[2019-06-20 14:26] VITALS: BP 133/62
== END 2019-06-20 15:17 | disposition hospice, inpatient (51) ==
LOC: ED 10:40
PROVIDERS: Emergency Medicine
DX: E86.0 Dehydration (principal); J44.1 Chronic obstructive pulmonary disease with (acute) exacerbation; F17.210 Nicotine dependence, cigarettes, uncomplicated; I10 Essential (primary) hypertension; Z95.0 Presence of cardiac pacemaker; R53.1 Weakness; S41.111A Laceration without foreign body of right upper arm, initial encounter; W06.XXXA Fall from bed, initial encounter; Y92.003 Bedroom of unspecified non-institutional (private) residence as the place of occurrence of the external cause